=== PATIENT | male | born 1970 | race Caucasian/White ===

== ENCOUNTER 2018-09-15 22:35 | Observation (INO) | payer MEDICARE ==
[2018-09-15 22:54] VITALS: BMI 20.8
--- NOTE | 2018-09-15 23:07 | PDOC ---
Attending Attestation - HPI HPI: 09/15/18 23:36 The patient is a 48 year old male with a significant past medical history of HTN , HLD, DM and recent stents (3 placed last week at [facility]), who presents to the emergency department today complaining of chest pain since this morning, which is nonradiating. Patient reports associated SOB. The patient denies headache and dizziness. Denies fever, chills, nausea, vomit, diarrhea and constipation. Denies dysuria, frequency, urgency and hematuria. Allergies: NKA - Physicial Exam PE: 09/15/18 23:36 Agree with resident exam. <Peace Hunt - Last Filed: 09/15/18 23:36> - Resident Resident Name: Juno Garnett - ED Attending Attestation I have performed the following: I have examined & evaluated the patient, The case was reviewed & discussed with the resident, I agree w/resident's findings & plan - Medical Decision Making 09/16/18 02:56 48-year-old male status post stent cardiac stent at [place] recently now with intermittent retrosternal chest pain EKG showed no acute ST segment changes First troponin within normal limits Due to severity of the pain as CTA of the chest has been ordered and is pending We will review with plans for admission Case discussed with covering physician at [place] who recommends transfer if the CT scan is abnormal or troponins are elevated He also asked to be advised of any acute EKG changes Otherwise patient will remain in house for further observation <Tosha Ramirez - Last Filed: 09/16/18 02:57> Attestations - Attestations 09/15/18 23:36 Documentation prepared by Peace Hunt, acting as medical radiation tech for Tosha Ramirez DO. <Peace Hunt - Last Filed: 09/15/18 23:36>
[2018-09-15] MEDS ORDERED: ASPIRIN 81 MG CHEWABLE TABLETS PO ONE (23:11)
--- NOTE | 2018-09-15 23:29 | PDOC ---
History of Present Illness - General Chief Complaint: Chest Pain Stated Complaint: SURGERY ON WEDNESDAY CHEST PAIN Time Seen by Provider: 09/15/18 23:03 History Source: Patient Exam Limitations: No Limitations - History of Present Illness Initial Comments: 09/15/18 23:20 The patient is a 48M with a PMH of HTN, HLD, DM and recent stents (3 placed last week at [facility]) who presents to the ER with 12 hours of chest pain. The patient states that he developed sharp, nonradiating, retrosternal chest pain which has been constant, mildly improving, without exacerbating or alleviating factors, associated with SOB but no nausea, vomiting, diaphoresis, lightheadedness, palpitations. Past History - Past Medical History Allergies/Adverse Reactions: Allergies Allergy/AdvReac Type Severity Reaction Status Date / Time No Known Allergies Allergy Verified 09/15/18 22:56 Cardiac Disorders: Yes COPD: No Diabetes: Yes Hypercholesterolemia: Yes - Surgical History Cardiac Surgery: Yes - Suicide/Smoking/Psychosocial Hx Smoking History: Unknown if ever smoked Information on smoking cessation initiated: No Hx Alcohol Use: No Drug/Substance Use Hx: No Review of Systems - Review of Systems Able to Perform ROS?: Yes Comments:: 09/15/18 23:29 GENERAL/CONSTITUTIONAL: No fever or chills. No weakness. HEAD, EYES, EARS, NOSE AND THROAT: No change in vision. No ear pain or discharge. No sore throat. CARDIOVASCULAR: Positive for chest pain. No palpitations or lightheadedness. RESPIRATORY: Positive for SOB. No cough, wheezing, or hemoptysis. GASTROINTESTINAL: No nausea, vomiting, diarrhea, constipation, or abdominal pain. GENITOURINARY: No dysuria, frequency, hematuria, or change in urination. MUSCULOSKELETAL: No joint or muscle swelling or pain. No neck or back pain. SKIN: No rash or lesions. NEUROLOGIC: No headache, numbness, tingling, focal weakness, loss of consciousness, or change in strength/sensation. Is the patient limited Maori proficient: No *Physical Exam - Vital Signs Last Vital Signs Temp Pulse Resp BP Pulse Ox 98.3 F 69 20 115/79 98 09/15/18 22:50 09/15/18 22:50 09/15/18 22:50 09/15/18 22:50 09/15/18 22:50 - Physical Exam Comments: 09/15/18 23:31 GENERAL: Well developed, well nourished. Awake and alert. No acute distress. HEENT: Normocephalic, atraumatic. Hearing grossly normal. Moist mucous membranes. PERRLA, EOMI. No conjunctival pallor. NECK: Supple. Full ROM. No JVD. CARDIOVASCULAR: Regular rate and rhythm. No murmurs, rubs, or gallops. PULMONARY: No evidence of respiratory distress. Lungs clear to auscultation bilaterally. No wheezing, rales or rhonchi. ABDOMINAL: Soft. Non-tender. Non-distended. No rebound or guarding. GENITOURINARY: No CVA tenderness bilaterally. MUSCULOSKELETAL: Normal range of motion at all joints. No bony deformities or tenderness. EXTREMITIES: No cyanosis. No clubbing. No edema. No calf tenderness or swelling. SKIN: Warm and dry. Normal capillary refill. No rashes. No jaundice. NEUROLOGICAL: Alert, awake, appropriate. Cranial nerves 2-12 intact. Normal speech. Gait is normal without ataxia. PSYCHIATRIC: Cooperative. Good eye contact. Appropriate mood and affect. Moderate Sedation - Procedure Monitoring Vital Signs: Procedure Monitoring Vital Signs Temperature 98.3 F 09/15/18 22:50 Pulse Rate 69 09/15/18 22:50 Respiratory Rate 20 09/15/18 22:50 Blood Pressure 115/79 09/15/18 22:50 O2 Sat by Pulse Oximetry (%) 98 09/15/18 22:50 Heart Score/ECG Review - History History: Moderately suspicious - Electrocardiogram EKG: Normal - Age Age: 45-65 - Risk Factors Risk Factors Heart Score: Yes Hx Hypercholesterolemia, Yes Hx Hypertension, Yes Hx Diabetes Based on the list above the patient has:: >/=3 risk factors or Hx atherosclerotic disease #1 General ECG Interpretation: Sinus Rhythm, Normal Rate, Normal Intervals, No acute ischemic changes Compared to previous ECG there are: Previous ECG unavail 09/15/18 23:59 NSR vent rate 75 NV 164 QRS 118 QTc 427 No STD or MAGNOLIA No signs of acute ischemia ED Treatment Course - LABORATORY CBC & Chemistry Diagram: 09/15/18 22:15 09/15/18 23:03 - RADIOLOGY Radiology Studies Ordered: Category Date Time Status CHEST X-RAY PORTABLE* [RAD] Stat Radiology 09/15/18 23:11 Ordered Medical Decision Making - Medical Decision Making 09/15/18 23:59 The patient is a 48M with a PMH of HTN, HLD, DM, stents last week on AC who presents to the ER with CP concerning for ACS, thrombosed stent. EKG unremarkable. Pending labs. CXR negative on preliminary read. 09/16/18 01:21 Trop negative. Pt states he feels much more pain. Will treat pain and order CTA to r/o dissection. 09/16/18 01:37 Case d/w Dr. Kenyon, associate of Dr. Carcamo who placed the stents on the patient. Will work up chest pain and send to [facility] if EKG changes are present or if CTA shows anything. 09/16/18 03:15 CTA: negative for thoracic aortic aneurysm or dissection. No PE in the major central pulmonary arteries. Lungs are clear of acute disease. Pt informed. Will microblog for admission. 09/16/18 05:05 Repeat trop 0.3. Will admit pt. *DC/Admit/Observation/Transfer Diagnosis at time of Disposition: Chest pain Qualifiers: Chest pain type: unspecified Qualified Code(s): R07.9 - Chest pain, unspecified - Discharge Dispostion Condition at time of disposition: Guarded Decision to Admit order: Yes - Referrals - Patient Instructions - Post Discharge Activity
[2018-09-15 23:59] LABS: BASO % 0.3 % (0-2.0); EOS % 1.3 % (0-4.5); HEMATOCRIT 41.3 % (35.4-49); HEMOGLOBIN 14.8 GM/dL (11.7-16.9); LYMPH % 22.4 % (8-40); MCH 32.6 pg (25.7-33.7); MCHC 35.9 g/dl (32.0-35.9); MEAN CELL VOLUME 90.9 fl (80-96); MEAN PLT VOLUME 10.2 fl (7.5-11.1); MONO % 11.4 % (3.8-10.2); NEUT % 64.6 % (42.8-82.8); PLATELET COUNT 142 K/MM3 (134-434); RBC 4.55 M/mm3 (4.00-5.60); RDW 12.7 % (11.9-15.9); WHITE BLOOD COUNT 4.5 K/mm3 (4.0-10.0)
[2018-09-16 00:23] LABS: INR 1.11 (0.83-1.09); PROTHROMBIN TIME (PATIENT) 13.1 SEC (9.7-13.0)
[2018-09-16 00:31] LABS: ALBUMIN 3.6 g/dl (3.4-5.0); ALK PHOS 112 U/L (45-117); ANION GAP 5 MMOL/L (8-16); BILIRUBIN,TOTAL 0.4 mg/dL (0.2-1); BLOOD UREA NITROGEN 12 mg/dL (7-18); CALCIUM 8.2 mg/dL (8.5-10.1); CHLORIDE 97 mmol/L (98-107); CO2 31 mmol/L (21-32); CREATININE 0.9 mg/dL (0.55-1.3); GLUCOSE,RANDOM 158 mg/dL (74-106); POTASSIUM 4.4 mmol/L (3.5-5.1); SGOT/AST 38 U/L (15-37); SGPT/ALT 65 U/L (13-61); SODIUM 132 mmol/L (136-145); TOT PROT 8.2 g/dl (6.4-8.2)
[2018-09-16 01:20] LABS: MAGNESIUM 2.1 mg/dL (1.8-2.4)
[2018-09-16] MEDS ORDERED: ONDANSETRON 4 MG/2 ML VIAL IVPUSH ONE (01:20)
[2018-09-16] MEDS ORDERED: morphine CARPU-JECT 4 MG/1 ML DISP.SYRIN IVPUSH ONE (01:20)
[2018-09-16] MEDS ORDERED: ONDANSETRON 4 MG/2 ML VIAL ONE (01:24)
[2018-09-16] MEDS ORDERED: morphine SULFATE 4 MG/ML VIAL ONE (01:24)
--- NOTE | 2018-09-16 05:45 | HP ---
CHIEF COMPLAINT: Chest pain PCP: none HISTORY OF PRESENT ILLNESS: The patient is a 48 yo m w/ PMH HTN, DM, CAD who was stented last week for an unclear reason comes into the ED c/o a 12 hr history of substernal chest pain. The patient states that he was sitting at home when he began to experience a substernal, squeezing pain in the center of his chest. The pain did not radiate and had no exacerbating or alleviating factors. The patient associates this pain with SOB. He states that this pain was different from the pain he experienced when he had his stents placed. The stents were placed at [place] by Dr. Carcamo. Patient endorses compliance with his aspirin and Plavix. He gets his medication from [address] [place] [address]. ER course was notable for: (1) trop neg x2 (2) EKG showing NSR (3) CTA negative for aneurysm/PE Recent Travel: none PAST MEDICAL HISTORY: see HPI PAST SURGICAL HISTORY: stenting 1 week ago Social History: Smoking: former smoker, quit 3 weeks ago Alcohol: drinks 3 times per week, unknown amount Drugs: denies Family History: none Allergies No Known Allergies Allergy (Verified 09/15/18 22:56) HOME MEDICATIONS: REVIEW OF SYSTEMS CONSTITUTIONAL: Absent: fever, chills, diaphoresis, generalized weakness, malaise, loss of appetite, weight change HEENT: Absent: rhinorrhea, nasal congestion, throat pain, throat swelling, difficulty swallowing, mouth swelling, ear pain, eye pain, visual changes CARDIOVASCULAR: Absent: syncope, palpitations, irregular heart rate, lightheadedness, peripheral edema RESPIRATORY: Absent: cough, dyspnea with exertion, orthopnea, wheezing, stridor, hemoptysis GASTROINTESTINAL: Absent: abdominal pain, abdominal distension, nausea, vomiting, diarrhea, constipation, melena, hematochezia GENITOURINARY: Absent: dysuria, frequency, urgency, hesitancy, hematuria, flank pain, genital pain MUSCULOSKELETAL: Absent: myalgia, arthralgia, joint swelling, back pain, neck pain SKIN: Absent: rash, itching, pallor HEMATOLOGIC/IMMUNOLOGIC: Absent: easy bleeding, easy bruising, lymphadenopathy, frequent infections ENDOCRINE: Absent: unexplained weight gain, unexplained weight loss, heat intolerance, cold intolerance NEUROLOGIC: Absent: headache, focal weakness or paresthesias, dizziness, unsteady gait, seizure, mental status changes, bladder or bowel incontinence PSYCHIATRIC: Absent: anxiety, depression, suicidal or homicidal ideation, hallucinations. PHYSICAL EXAMINATION Vital Signs - 24 hr 09/15/18 22:50 Temperature 98.3 F Pulse Rate 69 Respiratory 20 Rate Blood Pressure 115/79 O2 Sat by Pulse 98 Oximetry (%) GENERAL: Awake, alert, and fully oriented, in no acute distress. HEAD: Normal with no signs of trauma. EYES: Prominent conjunctival injection b/l. No tenderness to palpation, no itching. NECK: Normal range of motion, supple without lymphadenopathy, JVD, or masses. LUNGS: Breath sounds equal, clear to auscultation bilaterally. No wheezes, and no crackles. No accessory muscle use. HEART: Regular rate and rhythm, normal S1 and S2 without murmur, rub or gallop. ABDOMEN: Soft, nontender, not distended, normoactive bowel sounds, no guarding, no rebound, no masses. No hepatomegaly or splenomegaly. LOWER EXTREMITIES: 2+ pulses, warm, well-perfused. No calf tenderness. No peripheral edema. NEUROLOGICAL: Cranial nerves II-X intact. Normal speech. SKIN: Warm, dry, normal turgor, no rashes or lesions noted, normal capillary refill. Laboratory Results - last 24 hr 09/15/18 09/15/18 09/15/18 22:15 22:15 22:15 WBC 4.5 RBC 4.55 Hgb 14.8 Hct 41.3 MCV 90.9 MCH 32.6 MCHC 35.9 RDW 12.7 Plt Count 142 MPV 10.2 Absolute Neuts (auto) 2.9 Neutrophils % 64.6 Lymphocytes % 22.4 Monocytes % 11.4 H Eosinophils % 1.3 Basophils % 0.3 Nucleated RBC % 0 PT with INR 13.10 H INR 1.11 H Sodium Potassium Chloride Carbon Dioxide Anion Gap BUN Creatinine Creat Clearance w eGFR Random Glucose Calcium Magnesium Total Bilirubin AST ALT Alkaline Phosphatase Creatine Kinase Troponin I Total Protein Albumin Blood Type O POSITIVE Antibody Screen Negative 09/15/18 09/16/18 09/16/18 23:03 00:33 04:20 WBC RBC Hgb Hct MCV MCH MCHC RDW Plt Count MPV Absolute Neuts (auto) Neutrophils % Lymphocytes % Monocytes % Eosinophils % Basophils % Nucleated RBC % PT with INR INR Sodium 132 L Potassium 4.4 Chloride 97 L Carbon Dioxide 31 Anion Gap 5 L BUN 12 Creatinine 0.9 Creat Clearance w eGFR > 60 Random Glucose 158 H Calcium 8.2 L Magnesium 2.1 Cancelled Total Bilirubin 0.4 AST 38 H ALT 65 H Alkaline Phosphatase 112 Creatine Kinase 62 Troponin I 0.02 0.03 Total Protein 8.2 Albumin 3.6 Blood Type Antibody Screen ASSESSMENT/PLAN: The patient is a 48 yo m w/ PMH HTN, HLD, DM, CAD s/p stenting [place] week who comes into the ED c/o CP and SOB. #Chest pain, SOB r/o ACS/rethrombosis of artery -ED consilted dr. carcamo, who placed the patient's stents, who reccomended ACS workup and transfer if results positive. -trop negative x2 in ED -initial EKG unchanged -Will rpt trop @10am -will rpt EKG @ 10am -patient will benefit from cardiac eval in the AM. -observe on tele -resumed Asa and Plavix as patient likely on these at home. -sublingual nitro prn #b/l conjunctival injection -patient unsure of eitology -patient would benefit from outpatient optho f/u #FEN -no fluids indicated -lytes WNL -diabetic diet #Prophy -SCDs #Dispo -observe on telemetry -patient unsure of medications; they must be verified Visit type - Emergency Visit Emergency Visit: Yes ED Registration Date: 09/16/18 Care time: The patient presented to the Emergency Department on the above date and was hospitalized for further evaluation of their emergent condition. - New Patient This patient is new to me today: Yes Date on this admission: 09/16/18 - Critical Care Critical Care patient: No
[2018-09-16] MEDS ORDERED: NITROGLYCERIN SUBLINGUAL 1/200 0.3 MG BTL SL PRN (06:48)
--- NOTE | 2018-09-16 06:48 | PN ---
Teaching Attending Note Name of Resident: Dayo Wolf ATTENDING PHYSICIAN STATEMENT I saw and evaluated the patient. I reviewed the resident's note and discussed the case with the resident. I agree with the resident's findings and plan as documented. SUBJECTIVE: Seen and examined; please refer to resident note for further historical information. Briefly, this is a 48 y/o male with a PMH significant for recent stenting at [facility] (states multiple placed last week; cath report not available). He presents with chest pain that is typical in nature since this morning. It is L-sided to substernal and radiates throughout the area and is not reproducible. It began when he was at rest. He endorses compliance with his home medication and denies missing any doses of his antiplatelet agents. ER discussed the case with CV at [facility] and they stated that if he was stable in terms of his troponin and CTA that he may stay here at [place]. Old records pending. Also, patient has several weeks of non-painful conjunctival injections without discharge, change in vision acutely, etc. Hasn' t yet seen an eye doctor. 10 sys ROS done and negative aside from HPI PMH and PSH reviewed; FLORIAN with recent PCI, DM, HTN, Smoker up to 1 week ago, HLD , occasional EtOH use but denies abuse Social hx and family hx reviewed Medication list reviewed pending OBJECTIVE: VS, labs, imaging reviewed NAD, AAO, Resting comfortably in bed RRR s1/2 no mgr Lungs CTAB, w/ sym exp NT ND +BS No LE edema, no JVD CN2-12 wnl, no fnd EKG reviewed; repeat is pending Labs reviewed; first 2 troponin wnl CTA final report pending; prelim reviewed ASSESSMENT AND PLAN: Patient with recent PCI presents with chest pain 1) Chest Pain -Concerning given the recent stents but he states he is compliant. Trending EKGs and troponin with first 2 trop wnl. -Consulting cardiology -Admit to telemetry. Check echo. -Ddx is broad; of course considering ACS. Obtaining old records. Consider alternative causes like prinzmetal, sanjay, etc. 2) DM -SSI when inpt 3) HTN -Continue home medications 4) CAD with recent PCI -Reconcile and continue all home medications 5) Former smoker -Since his stenting; encouraged to continue to quit 6) Transaminitis -Check RUQ us, trend LFTs 7) Mild hyponatremia -Unclear etiology; repeat BMP in AM and obtain urine Na, serum and urine osm
[2018-09-16] MEDS ORDERED: ASPIRIN COATED 81 MG TABLET.EC PO SCH (10:00)
[2018-09-16] MEDS ORDERED: ENOXAPARIN NA (PORCINE) 40 MG/0.4 ML DISP.SYRIN SQ SCH (10:00)
[2018-09-16] MEDS ORDERED: CLOPIDOGREL BISULFATE 75 MG TABLET (FP) PO SCH (10:00)
[2018-09-16] MEDS: INSULIN SLIDING SCALE (NOVOLOG) 1 VIAL SQ SCH ×2 (10:16→11:51)
[2018-09-16] MEDS ORDERED: ARTIFICIAL TEARS (POLYVINYL ALCOHOL) OPTH DROPS OU PRN ×2 (10:31→13:50)
[2018-09-16 11:30] LABS: HEMATOCRIT 40.9 % (35.4-49); HEMOGLOBIN 14.5 GM/dL (11.7-16.9); MCH 32.2 pg (25.7-33.7); MCHC 35.5 g/dl (32.0-35.9); MEAN CELL VOLUME 90.7 fl (80-96); MEAN PLT VOLUME 10.6 fl (7.5-11.1); PLATELET COUNT 144 K/MM3 (134-434); RBC 4.51 M/mm3 (4.00-5.60); RDW 12.4 % (11.9-15.9)
[2018-09-16 11:42] LABS: INR 1.13 (0.83-1.09); PROTHROMBIN TIME (PATIENT) 13.4 SEC (9.7-13.0)
[2018-09-16 11:44] LABS: ACTIVATED PTT 29.6 SECONDS (25.2-36.5)
--- NOTE | 2018-09-16 12:00 | CON.CARD ---
Cardiology Consult (text) - Consultation Consultation Note: Chief Complaint: chest pain History of Present Illness: 48 M here with CP. Last month was here with cp and nstemi, had cath then with stent to mid lad. Thompson fine at home for about a week, then yesterday was sitting down and felt left chest heaviness, no radiation, no associated sxs. Came to ER and overnight cp resolved. Different cp then his prior nstemi. smokes 5 cigarettes per day no family h/o CAD/IA or heart problems per pt - Alcohol/Substance Use Hx Alcohol Use: No Home Medications Home Medications Medication Instructions Recorded Aspirin 81 mg PO DAILY 09/16/18 Atorvastatin Calcium 80 mg PO DAILY 09/16/18 Metoprolol Succinate 25 mg PO DAILY 09/16/18 Ticagrelor [Brilinta -] 90 mg PO Q12H 09/16/18 metFORMIN HCL [Metformin HCl] 1,000 mg PO BIDAC 09/16/18 Review of Systems - Review of Systems Constitutional: denies: Chills, Fever Eyes: denies: Eye Pain HENT: denies: Nasal Congestion Neck: denies: Stiffness Cardiovascular: denies: Palpitations Respiratory: denies: Orthopnea, PND Gastrointestinal: denies: Diarrhea, Rectal Bleeding Genitourinary: denies: Burning, Hematuria Musculoskeletal: denies: Muscle Pain Integumentary: denies: Rash Neurological: denies: Numbness, Seizure, Syncope Endocrine: denies: Excessive Sweating Hematology/Lymphatic: denies: Excessive Bleeding Vital Signs: Vital Signs Period Temp Pulse Resp BP Sys/Bates Pulse Ox Last 24 Hr 97.8 F-98.3 F 69-85 18-20 109-116/72-79 96-99 Constitutional: Yes: Well Nourished, No Distress HENT: No: Nasal Congestion Neck: No: Decreased ROM Respiratory: Yes: CTA Bilaterally. No: Accessory Muscle Use, Rales, Rhonchi, Wheezes Gastrointestinal: Yes: Normal Bowel Sounds. No: Distention, Hepatomegaly, Palpable Mass, Tenderness Cardiovascular: Yes: Regular Rate and Rhythm JVD: No Carotid Bruit: No PMI: Non-Displaced Heart Sounds: Yes: S1, S2. No: Gallop, Rub Murmur: No: Systolic Murmur, Diastolic Murmur Musculoskeletal: Yes: Other (No kyphosis) Extremities: No: Cold, Cyanosis Edema: No Peripheral Pulses: 2+ Left Carotid, 2+ Right Carotid, 2+ Left Doralis Pedis, 2+ Right Dorsalis Pedis Integumentary: No: Jaundice Neurological: Yes: Alert, Oriented (x3) Psychiatric: No: Agitated Laboratory Last Values WBC 5.0 K/mm3 (4.0-10.0) 09/16/18 10:40 RBC 4.51 M/mm3 (4.00-5.60) 09/16/18 10:40 Hgb 14.5 GM/dL (11.7-16.9) 09/16/18 10:40 Hct 40.9 % (35.4-49) 09/16/18 10:40 MCV 90.7 fl (80-96) 09/16/18 10:40 MCH 32.2 pg (25.7-33.7) 09/16/18 10:40 MCHC 35.5 g/dl (32.0-35.9) 09/16/18 10:40 RDW 12.4 % (11.9-15.9) 09/16/18 10:40 Plt Count 144 K/MM3 (134-434) 09/16/18 10:40 MPV 10.6 fl (7.5-11.1) 09/16/18 10:40 Absolute Neuts (auto) 2.9 K/mm3 (1.5-8.0) 09/15/18 22:15 Neutrophils % 64.6 % (42.8-82.8) 09/15/18 22:15 Lymphocytes % 22.4 % (8-40) 09/15/18 22:15 Monocytes % 11.4 % (3.8-10.2) H 09/15/18 22:15 Eosinophils % 1.3 % (0-4.5) 09/15/18 22:15 Basophils % 0.3 % (0-2.0) 09/15/18 22:15 Nucleated RBC % 0 % (0-0) 09/15/18 22:15 PT with INR 13.40 SEC (9.7-13.0) H 09/16/18 10:40 INR 1.13 (0.83-1.09) H 09/16/18 10:40 PTT (Actin FS) 29.6 SECONDS (25.2-36.5) 09/16/18 10:40 Sodium 132 mmol/L (136-145) L 09/15/18 23:03 Potassium 4.4 mmol/L (3.5-5.1) 09/15/18 23:03 Chloride 97 mmol/L (98-107) L 09/15/18 23:03 Carbon Dioxide 31 mmol/L (21-32) 09/15/18 23:03 Anion Gap 5 MMOL/L (8-16) L 09/15/18 23:03 BUN 12 mg/dL (7-18) 09/15/18 23:03 Creatinine 0.9 mg/dL (0.55-1.3) 09/15/18 23:03 Creat Clearance w eGFR > 60 (>60) 09/15/18 23:03 POC Glucometer 147 UNITS (80-120) 09/16/18 10:11 Random Glucose 158 mg/dL (74-106) H 09/15/18 23:03 Calcium 8.2 mg/dL (8.5-10.1) L 09/15/18 23:03 Magnesium Cancelled 09/16/18 00:33 Total Bilirubin 0.4 mg/dL (0.2-1) 09/15/18 23:03 AST 38 U/L (15-37) H 09/15/18 23:03 ALT 65 U/L (13-61) H 09/15/18 23:03 Alkaline Phosphatase 112 U/L (45-117) 09/15/18 23:03 Creatine Kinase 62 U/L (26-308) 09/15/18 23:03 Troponin I 0.03 ng/ml (0.00-0.05) 09/16/18 04:20 Total Protein 8.2 g/dl (6.4-8.2) 09/15/18 23:03 Albumin 3.6 g/dl (3.4-5.0) 09/15/18 23:03 Blood Type O POSITIVE 09/15/18 22:15 Antibody Screen Negative 09/15/18 22:15 serial ecgs reviewed: sr, nl intervals, no ischemic changes cta chest: no pe, no dissection, no aortic aneurysm, no chf Assessment/Plan cad, nstemi, pci chest pain: -recent admit for nstemi, had pci to mid [facility] -current cp different then [place] cp per pt -no signs acs here. trops neg. serial ecgs benign. -cta chest unremarkable -cont home cardiac meds, including uninterrupted dual antiplt therapy hld: -cont statin htn: -cont bb cardiac patton stable for dc, has appt with cardiology this wednesday
[2018-09-16 12:19] LABS: ALBUMIN 3.4 g/dl (3.4-5.0); ALK PHOS 97 U/L (45-117); ANION GAP 8 MMOL/L (8-16); BILIRUBIN,TOTAL 0.4 mg/dL (0.2-1); BLOOD UREA NITROGEN 11 mg/dL (7-18); CALCIUM 8.2 mg/dL (8.5-10.1); CHLORIDE 99 mmol/L (98-107); CO2 25 mmol/L (21-32); CREATININE 0.9 mg/dL (0.55-1.3); GLUCOSE,RANDOM 149 mg/dL (74-106); PHOSPHOROUS 4.1 mg/dL (2.5-4.9); POTASSIUM 4.4 mmol/L (3.5-5.1); SGOT/AST 35 U/L (15-37); SGPT/ALT 58 U/L (13-61); SODIUM 132 mmol/L (136-145); TOT PROT 7.7 g/dl (6.4-8.2)
--- NOTE | 2018-09-16 12:22 | PN ---
Teaching Attending Note Name of Resident: Nadir Dove ATTENDING PHYSICIAN STATEMENT I saw and evaluated the patient. I reviewed the resident's note and discussed the case with the resident. I agree with the resident's findings and plan as documented. SUBJECTIVE: No fever or chills, No abd pain, cont to have CP, since last night at 6/10, improved form 810. he describes the pain as retrosternal pressure with no relation to movement, breathing or BM. he some times gets reflux. His pain that prompted the cath was L sided and radiated to L arm. he reports being compliant with all his meds reports injection in his eyes for 3 weeks. No eye pain, no decrease in vision . No pain with eye movements. OBJECTIVE: NAD, AAOx3 . MMM, conjunctival injection with no discharge, pupils are round and normal , reactive to light , EOMI. CV: RRR, No MRG lungs: CTAB Ext : no edema or erythema. No signs of fungal infection No TTP over chest wall . ASSESSMENT AND PLAN: 48 y/o man with h/o HTN, DM, HLP, and CAD s/p recent cath ( 1 week ago in [facility]) , with stenting to [facility]AD ,who presented with retrosternal CP 1- Retrosternal CP: EKG with RBBB, sinus rhythm, Q waves in III and flat TW in III with J point elevation in V2. this was repeated twice and still the same. Trop nl x 2. His chest pain is likely atypical as it lasted for many hours with Nl trop and no EKG changes. ? GERD seen by card, appreciate Recs Cont ASA , statin, BB , and Brilinta . records were requested. 2- Transaminitis: likely due to fatty liver and statin treatment. US with no acute obstructive process Monitor as out pt 3- DM : cont metformin at dc Dc home
--- NOTE | 2018-09-16 13:19 | EKG ---
Test Reason : Blood Pressure : / mmHG Vent. Rate : 073 BPM Atrial Rate : 073 BPM P-R Int : 164 ms QRS Dur : 118 ms QT Int : 388 ms P-R-T Axes : 050 079 039 degrees QTc Int : 427 ms NORMAL SINUS RHYTHM POSSIBLE LEFT ATRIAL ENLARGEMENT INCOMPLETE RIGHT BUNDLE BRANCH BLOCK BORDERLINE ECG NO PREVIOUS ECGS AVAILABLE Confirmed by KRISTINE BISHOP MD ([id number]) on 09/16/2018 1:19:08 PM Referred By: Confirmed By:KRISTINE BISHOP MD
--- NOTE | 2018-09-16 13:22 | EKG ---
Test Reason : Blood Pressure : / mmHG Vent. Rate : 082 BPM Atrial Rate : 082 BPM P-R Int : 164 ms QRS Dur : 102 ms QT Int : 354 ms P-R-T Axes : 041 087 037 degrees QTc Int : 413 ms NORMAL SINUS RHYTHM CANNOT RULE OUT INFERIOR INFARCT (CITED ON OR BEFORE 16-SEP-2018) ABNORMAL ECG WHEN COMPARED WITH ECG OF 16-SEP-2018 01:43, NO SIGNIFICANT CHANGE WAS FOUND Confirmed by KRISTINE BISHOP MD ([id number]) on 09/16/2018 1:22:10 PM Referred By: SELMA MORALES Confirmed By:KRISTINE BISHOP MD
--- NOTE | 2018-09-16 13:22 | EKG ---
Test Reason : Blood Pressure : / mmHG Vent. Rate : 080 BPM Atrial Rate : 080 BPM P-R Int : 166 ms QRS Dur : 114 ms QT Int : 372 ms P-R-T Axes : 037 061 030 degrees QTc Int : 429 ms NORMAL SINUS RHYTHM CANNOT RULE OUT INFERIOR INFARCT (CITED ON OR BEFORE 16-SEP-2018) ABNORMAL ECG WHEN COMPARED WITH ECG OF 16-SEP-2018 01:42, NO SIGNIFICANT CHANGE WAS FOUND Confirmed by KRISTINE BISHOP MD ([id number]) on 09/16/2018 1:22:05 PM Referred By: Confirmed By:KRISTINE BISHOP MD
[2018-09-16 13:44] VITALS: TEMP 98
--- NOTE | 2018-09-16 14:25 | DS ---
Physical Exam: SUBJECTIVE: Patient seen and examined at bedside. No acute events overnight. OBJECTIVE: Vital Signs Period Temp Pulse Resp BP Sys/Bates Pulse Ox Last 24 Hr 97.8 F-98.3 F 68-85 18-20 108-116/71-79 96-100 PHYSICAL EXAM GENERAL: Awake, alert, and fully oriented, in no acute distress. HEAD: Normal with no signs of trauma. EYES: Prominent conjunctival injection b/l. No tenderness to palpation, no itching. NECK: Normal range of motion, supple without lymphadenopathy, JVD, or masses. LUNGS: Breath sounds equal, clear to auscultation bilaterally. No wheezes, and no crackles. No accessory muscle use. HEART: Regular rate and rhythm, normal S1 and S2 without murmur, rub or gallop. ABDOMEN: Soft, nontender, not distended, normoactive bowel sounds, no guarding, no rebound, no masses. No hepatomegaly or splenomegaly. LOWER EXTREMITIES: 2+ pulses, warm, well-perfused. No calf tenderness. No peripheral edema. NEUROLOGICAL: Cranial nerves II-X intact. Normal speech. SKIN: Warm, dry, normal turgor, no rashes or lesions noted, normal capillary refill. LABS Laboratory Results - last 24 hr 09/15/18 09/15/18 09/15/18 22:15 22:15 22:15 WBC 4.5 RBC 4.55 Hgb 14.8 Hct 41.3 MCV 90.9 MCH 32.6 MCHC 35.9 RDW 12.7 Plt Count 142 MPV 10.2 Absolute Neuts (auto) 2.9 Neutrophils % 64.6 Lymphocytes % 22.4 Monocytes % 11.4 H Eosinophils % 1.3 Basophils % 0.3 Nucleated RBC % 0 PT with INR 13.10 H INR 1.11 H PTT (Actin FS) Sodium Potassium Chloride Carbon Dioxide Anion Gap BUN Creatinine Creat Clearance w eGFR POC Glucometer Random Glucose Calcium Phosphorus Magnesium Total Bilirubin AST ALT Alkaline Phosphatase Creatine Kinase Troponin I Total Protein Albumin Blood Type O POSITIVE Antibody Screen Negative 09/15/18 09/16/18 09/16/18 23:03 00:33 04:20 WBC RBC Hgb Hct MCV MCH MCHC RDW Plt Count MPV Absolute Neuts (auto) Neutrophils % Lymphocytes % Monocytes % Eosinophils % Basophils % Nucleated RBC % PT with INR INR PTT (Actin FS) Sodium 132 L Potassium 4.4 Chloride 97 L Carbon Dioxide 31 Anion Gap 5 L BUN 12 Creatinine 0.9 Creat Clearance w eGFR > 60 POC Glucometer Random Glucose 158 H Calcium 8.2 L Phosphorus Magnesium 2.1 Cancelled Total Bilirubin 0.4 AST 38 H ALT 65 H Alkaline Phosphatase 112 Creatine Kinase 62 Troponin I 0.02 0.03 Total Protein 8.2 Albumin 3.6 Blood Type Antibody Screen 09/16/18 09/16/18 09/16/18 10:11 10:40 10:40 WBC 5.0 RBC 4.51 Hgb 14.5 Hct 40.9 MCV 90.7 MCH 32.2 MCHC 35.5 RDW 12.4 Plt Count 144 MPV 10.6 Absolute Neuts (auto) Neutrophils % Lymphocytes % Monocytes % Eosinophils % Basophils % Nucleated RBC % PT with INR INR PTT (Actin FS) Sodium Potassium Chloride Carbon Dioxide Anion Gap BUN Creatinine Creat Clearance w eGFR POC Glucometer 147 Random Glucose Calcium Phosphorus Magnesium Total Bilirubin AST ALT Alkaline Phosphatase Creatine Kinase Troponin I Total Protein Albumin Blood Type O POSITIVE Antibody Screen 09/16/18 09/16/18 10:40 10:40 WBC RBC Hgb Hct MCV MCH MCHC RDW Plt Count MPV Absolute Neuts (auto) Neutrophils % Lymphocytes % Monocytes % Eosinophils % Basophils % Nucleated RBC % PT with INR 13.40 H INR 1.13 H PTT (Actin FS) 29.6 Sodium 132 L Potassium 4.4 Chloride 99 Carbon Dioxide 25 Anion Gap 8 BUN 11 Creatinine 0.9 Creat Clearance w eGFR > 60 POC Glucometer Random Glucose 149 H Calcium 8.2 L Phosphorus 4.1 Magnesium 2.0 Total Bilirubin 0.4 AST 35 ALT 58 Alkaline Phosphatase 97 Creatine Kinase Troponin I Total Protein 7.7 Albumin 3.4 Blood Type Antibody Screen HOSPITAL COURSE: Date of Admission:09/16/18 48 yo m w/ PMH HTN, HLD, DM, CAD s/p stenting lask week who presented with c/o CP and SOB. Initial labs showed trops negx2 in the ED. Pt was given ASA and Plavix as well as SL nitro. He was admitted to the [facility] for further monitoring. EKG showed RBBB, sinus rhythm, Q waves in III and flat TWI in III w/ J point elevation in V2. Repeat EKG was unchanged. Upon cardiac eval, pt was not found to have an acute cardiac condition and as a result was cleared from a cardiac standpoint. Additionally, he was found to have b/l conjunctival injection in which he was prescribed Artifical tears as well as advised to follow up with ophtho as outpatient. During his hospital course, his symptoms improved. He was discharged home and advised to follow up with his PCP and leasing assistant. Date of Discharge: 09/16/18 Minutes to complete discharge: 40 Discharge Summary Reason For Visit: CHEST PAIN Current Active Problems Chest pain (Acute) Condition: Improved - Instructions Diet, Activity, Other Instructions: You were seen in the hospital for complaints of chest pain. In the hospital, your EKGs and blood work did not show signs of acute cardiac injury. MEDICATION INSTRUCTIONS Please use artificial tears 2 drops each eye Please continue taking your home medications as before. REFERRALS Please follow up with your primary care physician within 1 week. You had enlarged lymph nodes (mediastinal lymphadenopathy) on CT of chest. Have your primary care physician evaluate you further for repeat imaging and possible need for biopsy. You also had elevated liver enzymes, please bring this to your primary care physicin. Make an appointment with [facility] at [address] [place] [address] ([phone]) Please follow up with your leasing assistant on Wednesday. Please see the postpartum nurse within 2 weeks to follow with your eye concerns. If you experience worsening chest pain or shortness of breath, please return to the emergency room immediately. Referrals: Eri Mcdermott MD [Staff Physician] - Jack Carcamo MD [Staff Physician] - 1 Week Disposition: HOME - Home Medications Comprehensive Discharge Medication List: Ambulatory Orders Aspirin 81 mg PO DAILY 09/16/18 Atorvastatin Calcium 80 mg PO DAILY 09/16/18 Metoprolol Succinate 25 mg PO DAILY 09/16/18 Polyvinyl Alcohol [Artificial Tears] 1 drop OU BID PRN #1 bottle 09/16/18 Ticagrelor [Brilinta -] 90 mg PO Q12H 09/16/18 metFORMIN HCL [Metformin HCl] 1,000 mg PO BIDAC 09/16/18 This patient is new to me today: Yes Date on this admission: 09/19/18 Emergency Visit: Yes ED Registration Date: 09/16/18 Care time: The patient presented to the Emergency Department on the above date and was hospitalized for further evaluation of their emergent condition. Critical Care patient: No - Discharge Referral Referred to [facility] No
[2018-09-16 16:05] VITALS: BP 110/61; PULSE 77
--- NOTE | 2018-09-18 09:28 | EKG ---
Test Reason : Blood Pressure : / mmHG Vent. Rate : 097 BPM Atrial Rate : 078 BPM P-R Int : 170 ms QRS Dur : 102 ms QT Int : 374 ms P-R-T Axes : 047 091 015 degrees QTc Int : 474 ms POOR DATA QUALITY, INTERPRETATION MAY BE ADVERSELY AFFECTED SINUS RHYTHM WITH PREMATURE SUPRAVENTRICULAR COMPLEXES AND WITH OCCASIONAL PREMATURE VENTRICULAR COMPLEXES RIGHTWARD AXIS BORDERLINE ECG Confirmed by Orlin Saleem MD ([id number]) on 09/18/2018 9:28:11 AM Referred By: Confirmed By:Orlin Saleem MD
== END 2018-09-16 16:49 | disposition home or self-care (01) ==
LOC: JER 22:35 → UNDOADMOB 09-16 05:06 → INTOOBSV 09-16 05:06 → JERBED 09-16 05:06
PROVIDERS: ADMIT Internal Medicine; ATTEND Internal Medicine
PROC: 3E033NZ Introduction of Analgesics, Hypnotics, Sedatives into Peripheral Vein, Percutaneous Approach (ICD-10-PCS; principal; 2018-09-16)
PROC: 3E033GC Introduction of Other Therapeutic Substance into Peripheral Vein, Percutaneous Approach (ICD-10-PCS; 2018-09-16)
PROC: 3E013GC Introduction of Other Therapeutic Substance into Subcutaneous Tissue, Percutaneous Approach (ICD-10-PCS; 2018-09-16)
DX: R07.9 Chest pain, unspecified (principal); H11.433 Conjunctival hyperemia, bilateral; I10 Essential (primary) hypertension; I25.10 Atherosclerotic heart disease of native coronary artery without angina pectoris; I25.2 Old myocardial infarction; I45.10 Unspecified right bundle-branch block; E78.5 Hyperlipidemia, unspecified; E11.9 Type 2 diabetes mellitus without complications; E87.1 Hypo-osmolality and hyponatremia; R74.0 Nonspecific elevation of levels of transaminase and lactic acid dehydrogenase [LDH]; R59.1 Generalized enlarged lymph nodes; Z95.5 Presence of coronary angioplasty implant and graft; Z87.891 Personal history of nicotine dependence
CPT/HCPCS: 36415; 71045-TC-FY; 71275-TC; 76705-TC; 80053; 82550; 82962; 83735; 84100; 84484; 85025; 85027; 85610; 85730; 86850; 86900; 86901; 93005; 93010; 96372; 96374; 96375; 99285-25; G0378

== ENCOUNTER 2018-10-08 11:09 | Emergency (ER) | payer OTHER ==
--- NOTE | 2018-10-08 11:13 | PDOC ---
Attending Attestation - Resident Resident Name: Elaine Aguirre - ED Attending Attestation I have performed the following: I have examined & evaluated the patient, The case was reviewed & discussed with the resident, I agree w/resident's findings & plan, Exceptions are as noted - HPI HPI: 10/08/18 11:31 48yo male presents ambulatory for eval of b/l wrist and b/l knee pain. Pain started on Wednesday. States he feels stiff in the AM and then after a warm bath and after moving the pain resolves. Pt states taking tylenol for the pain. Pt denies f/c. No rash. No swelling. No redness. No falls/injury. No cp/sob/cough. No pereira. No neck pain. No back pain. No paresthesias. No weakness. No abd pain. No n/v/d. No sore throat. No rhinorrhea. NO urinary complaints. Pt with recent cardiac cath through R radial artery with stent placement. Denies cp. - Physicial Exam PE: 10/08/18 11:34 Gen: aaox3, nad heent: EOMI, MMM neck: supple, no vertebral ttp heart:+s1s2 reg lungs: cta b/l abd: soft, nt/nd +bs ext: no swelling to wrists or knees, no warmth, no redness, no palpable bruit/ thrill to R radial artery, radial and pedal pulses intact, FROM of all joints, no ttp over joints, pain with active rom of wrists and knees, no hip ttp, no back ttp, no rash, sensation intact, no nail changes, no lesions to hands - Medical Decision Making 10/08/18 11:13 I, Dr. Samantha Lizarraga, DO, attest that this document has been prepared under my direction and personally reviewed by me in its entirety. I further attest, that it accurately reflects all work, treatment, procedures and medical decision -making performed by me. 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 Bueno for wednesday ekg is improved pt stable for dc to home 10/08/18 12:20 pt has been ambulatory in the ED Heart Score/ECG Review - ECG Intrepretation Comment:: 10/08/18 12:01 sinus at 76, nl axis, nl interval, no acute st/t wave findings- improved from prior ekg
[2018-10-08 11:17] VITALS: BP 118/70; PULSE 70; TEMP 98.5; BMI 27.0
--- NOTE | 2018-10-08 11:20 | PDOC ---
History of Present Illness - General Chief Complaint: Pain Stated Complaint: JOINT PAIN Time Seen by Provider: 10/08/18 11:10 - History of Present Illness Initial Comments: 48 year old male with PMH of HTN, HLD, DM, recent stents (x3 placed one month ago), and recent admission for chest pain (CTA, trops, and EKG negative two weeks ago) presenting with bilateral wrist pain and bilateral knee pain for the past few week with worsening pain over the last week. States that he has had worsening pain since his HI 3 weeks ago. 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 He also states that he has swelling of the joints. Denies any fevers, rashes, recent insect bites, trauma to the joints, continued chest pain, headache, or other symptoms. 10/08/18 11:25 Past History - Past Medical History Allergies/Adverse Reactions: Allergies Allergy/AdvReac Type Severity Reaction Status Date / Time No Known Allergies Allergy Verified 10/08/18 11:10 Home Medications: Ambulatory Orders Aspirin 81 mg PO DAILY 09/16/18 Atorvastatin Calcium 80 mg PO DAILY 09/16/18 Metoprolol Succinate 25 mg PO DAILY 09/16/18 Polyvinyl Alcohol [Artificial Tears] 1 drop OU BID PRN #1 bottle 09/16/18 Ticagrelor [Brilinta -] 90 mg PO Q12H 09/16/18 metFORMIN HCL [Metformin HCl] 1,000 mg PO BIDAC 09/16/18 Cardiac Disorders: Yes COPD: No Diabetes: Yes HTN: Yes Hypercholesterolemia: Yes - Surgical History Cardiac Surgery: Yes (STENT) - Suicide/Smoking/Psychosocial Hx Smoking History: Unknown if ever smoked Have you smoked in the past 12 months: No Information on smoking cessation initiated: No Hx Alcohol Use: No Drug/Substance Use Hx: No Review of Systems - Review of Systems Constitutional: No: Chills, Diaphoresis, Fever HEENTM: No: Blurred Vision, Tearing Respiratory: No: Cough, Orthopnea, Shortness of Breath Cardiac (ROS): No: Chest Pain, Edema ABD/GI: No: Diarrhea, Nausea, Vomiting : No: Burning, Dysuria, Discharge Musculoskeletal: Yes: Joint Pain, Joint Swelling. No: Back Pain, Muscle Weakness, Neck Pain Integumentary: No: Bruising, Erythema, Flushing, Lesions, Rash Neurological: No: Numbness, Paresthesia, Weakness Psychiatric: No: Depression Hematologic/Lymphatic: No: Anemia, Blood Clots, Easy Bleeding *Physical Exam - Vital Signs Last Vital Signs Temp Pulse Resp BP Pulse Ox 98.5 F 70 20 118/70 99 10/08/18 11:10 10/08/18 11:10 10/08/18 11:10 10/08/18 11:10 10/08/18 11:10 - Physical Exam General Appearance: Yes: Nourished, Appropriately Dressed. No: Apparent Distress HEENT: positive: EOMI, DERIK, Normal ENT Inspection, Normal Voice Neck: positive: Trachea midline, Normal Thyroid, Supple. negative: Tender, Rigid Respiratory/Chest: positive: Lungs Clear, Normal Breath Sounds. negative: Chest Tender, Respiratory Distress Cardiovascular: positive: Regular Rhythm, Regular Rate Gastrointestinal/Abdominal: positive: Normal Bowel Sounds, Flat, Soft. negative : Tender Lymphatic: negative: Adenopathy, Tenderness Musculoskeletal: positive: Normal Inspection. negative: Decreased Range of Motion Extremity: positive: Normal Capillary Refill, Normal Inspection, Normal Range of Motion. negative: Tender Integumentary: positive: Normal Color, Dry, Warm Neurologic: positive: Fully Oriented, Alert, Normal Mood/Affect, Normal Response , Motor Strength 5/5 Moderate Sedation - Procedure Monitoring Vital Signs: Procedure Monitoring Vital Signs Temperature 98.5 F 10/08/18 11:10 Pulse Rate 70 10/08/18 11:10 Respiratory Rate 20 10/08/18 11:10 Blood Pressure 118/70 10/08/18 11:10 O2 Sat by Pulse Oximetry (%) 99 10/08/18 11:10 Medical Decision Making - Medical Decision Making 48 year old male with bilaterla wrist and knee pain in the setting of severely decreased activity since an HI. Patient taking Tylenol without relief. Toradol 30 IM significantly improved his pain in our ED. EKG demonstrated rate 76, FL 162, QRS 110, QTc 436, normal axis, with S waves in V1-V3 without MAGNOLIA, TWIs which seems improved from previous EKG 2 weeks prior. XRs demonstrating mild arthritis but no obvious erosions or fractures. 10/08/18 11:40 *DC/Admit/Observation/Transfer Diagnosis at time of Disposition: Joint pain Qualifiers: Joint pain location: wrist Laterality: bilateral Qualified Code(s): M25.531 - Pain in right wrist; M25.532 - Pain in left wrist Knee pain, bilateral Qualifiers: Chronicity: unspecified Qualified Code(s): M25.561 - Pain in right knee; M25.562 - Pain in left knee - Discharge Dispostion Disposition: HOME Condition at time of disposition: Improved Decision to Admit order: No - Referrals - Patient Instructions Printed Discharge Instructions: DI for Osteoarthritis Additional Instructions: Parece que tienes ainsley artritis leve en tus articulaciones, lo cual es comn para alguien de tu edad. Por favor use tylenol y compresas calientes para kan dolor. Por favor, wendy un seguimiento con kan mdico de atencin primaria en 6 bundy en kan nela. Regrese a la nimesh de emergencias si tiene sntomas nuevos o que empeoran. Print Language: SUDANESE - Post Discharge Activity
[2018-10-08] MEDS ORDERED: KETOROLAC TROMETHAMINE 30 MG/1 ML VIAL IM ONE (11:24)
[2018-10-08] MEDS ORDERED: KETOROLAC TROMETHAMINE 30 MG/1 ML VIAL ONE (11:38)
--- NOTE | 2018-10-10 11:07 | EKG ---
Test Reason : Blood Pressure : / mmHG Vent. Rate : 076 BPM Atrial Rate : 076 BPM P-R Int : 162 ms QRS Dur : 110 ms QT Int : 388 ms P-R-T Axes : 039 074 052 degrees QTc Int : 436 ms NORMAL SINUS RHYTHM NORMAL ECG WHEN COMPARED WITH ECG OF 16-SEP-2018 09:51, NO SIGNIFICANT CHANGE WAS FOUND Confirmed by MAXWELL ROMERO MD ([id number]) on 10/10/2018 11:07:11 AM Referred By: PETEY LOPEZ Confirmed By:MAXWELL ROMERO MD
== END 2018-10-08 12:47 | disposition home or self-care (01) ==
LOC: FER 11:09
PROC: 3E0233Z Introduction of Anti-inflammatory into Muscle, Percutaneous Approach (ICD-10-PCS; principal; 2018-10-08)
DX: M25.531 Pain in right wrist (principal); M25.562 Pain in left knee; I25.2 Old myocardial infarction; I10 Essential (primary) hypertension; E11.9 Type 2 diabetes mellitus without complications; E78.00 Pure hypercholesterolemia, unspecified
CPT/HCPCS: 73110-TC-LT-FY; 73110-TC-RT-FY; 73130-TC-LT-FY; 73130-TC-RT-FY; 73560-TC-LT-FY; 73560-TC-RT-FY; 93005; 99282-25

== ENCOUNTER 2018-10-21 15:32 | Inpatient (IN) | payer OTHER ==
--- NOTE | 2018-10-21 15:43 | PDOC ---
Rapid Medical Evaluation Time Seen by Provider: 10/21/18 15:41 Medical Evaluation: Allergies Allergy/AdvReac Type Severity Reaction Status Date / Time No Known Allergies Allergy Verified 10/21/18 15:41 03 15:41 I performed a brief in-person evaluation of this patient. Chief complaint: Chest and back pain since Wednesday, constant. Hx HTN, DM, HLD , CAD s/p stents. Pertinent physical exam findings: Mild tachycardia. Clear lungs. I have ordered the following: EKG, CXR, cardiac labs Patient to proceed to the ED for further evaluation. Discharge Disposition - Diagnosis Chest pain - Referrals - Patient Instructions - Post Discharge Activity
[2018-10-21] MEDS ORDERED: ASPIRIN 325 MG TABLET PO ONE (15:44)
[2018-10-21] MEDS ORDERED: ASPIRIN 325 MG TABLET ONE (15:57)
[2018-10-21 16:12] LABS: BASO % 0.2 % (0-2.0); EOS % 0.4 % (0-4.5); HEMATOCRIT 41.5 % (35.4-49); HEMOGLOBIN 14.4 GM/dL (11.7-16.9); LYMPH % 16.9 % (8-40); MCH 31.2 pg (25.7-33.7); MCHC 34.7 g/dl (32.0-35.9); MEAN CELL VOLUME 89.7 fl (80-96); MONO % 7.7 % (3.8-10.2); NEUT % 74.8 % (42.8-82.8); PLATELET COUNT 312 K/MM3 (134-434); RBC 4.62 M/mm3 (4.00-5.60); RDW 12.3 % (11.9-15.9); WHITE BLOOD COUNT 6.3 K/mm3 (4.0-10.0)
--- NOTE | 2018-10-21 16:27 | PDOC ---
Attending Attestation - HPI HPI: 10/21/18 17:09 The patient is a 48 year old male with a past medical history of NJ (one month ago) and recently diagnosed PE here today for evaluation of chest pain. The patient reports that his chest pain began recently radiates to his bilateral shoulders and back and is worse with inspiration. Patient denies headache, lightheadedness. Denies fever, chills. Denies chest pain, shortness of breath. Denies nausea, vomiting, diarrhea, abdominal pain. Allergies: NKA PCP: David Bueno - Medical Decision Making 10/21/18 17:09 Documentation prepared by CRISTINA Rosenthal, acting as medical clerical assistant for Kirsty Renteria MD. <Itz Melo - Last Filed: 10/21/18 17:09> - Medical Decision Making EXAM#: TYPE/EXAM: RESULT: [id number] CT/CHEST CTA Chest CT angiography Clinical information given: pulmonary embolism on 10/17, increasing pain and dyspnea, tachycardic. Impression: No definite CT evidence of pulmonary embolism. In this regard there has been no definite interval change in comparison to a prior CT study of 2018. Correlate with the results of interval studies apparently performed at a different facility. Interval development of mild lingular and minimal right lower lobe atelectasis is noted. Development of a trace left pleural effusion is seen. The remainder the exam demonstrates no definite interval change. Prominent atherosclerotic coronary calcification and/or stent. Mildly prominent mediastinal lymph nodes are again noted. Correlation with 3 month follow-up CT to evaluate stability/resolution. Possible splenomegaly. Correlate with sonography. Reported By: Jack Sifuentes MD 10/21/18 18:51 EXAM#: TYPE/EXAM: RESULT: [id number] RAD/CHEST X-RAY PORTABLE* AP portable chest : Chest pain Impression: No acute chest pathology. Reported By: Nadir Piña MD 10/21/18 19:03 10/21/18 19:52 <Ama Londono - Last Filed: 10/21/18 19:51> - Resident Resident Name: Frank Irwin - ED Attending Attestation I have performed the following: I have examined & evaluated the patient, The case was reviewed & discussed with the resident, I agree w/resident's findings & plan, Exceptions are as noted - HPI HPI: - Physicial Exam PE: 10/21/18 18:13 GENERAL: Awake, alert, and fully oriented, diaphoretic LUNGS: No distress, speaks full sentences, clear to auscultation bilaterally HEART: Regular rate and rhythm, normal S1 and S2, no murmurs, rubs or gallops ABDOMEN: Soft, nontender EXTREMITIES: Normal inspection, Normal range of motion, no edema. NEUROLOGICAL: Cranial nerves II through XII grossly intact. Normal speech, normal gait, no focal sensorimotor deficits SKIN: Warm, Dry, normal turgor, no rashes or lesions noted. - Critical Care Time Total Critical Care Time: 120 Critical Care Statement: The care of this patient involved high complexity decision making to prevent further life threatening deterioration of the patient 's condition and/or to evaluate & treat vital organ system(s) failure or risk of failure. - Medical Decision Making 10/21/18 18:10 Mr Lynne is a 48 yo M h/o NJ and stenting, recent h/o PE (on Xarelto) who presents to the ER with a complaint of pleuritic chest pain associated with shortness of breath (due to the inability to take a deep breath) for 2 days. He reports that his pain has been constant for the past 2 days, so much so that he has been unable to sleep due to chest discomfort (he has taken tylenol for pain with basically no relief). He is compliant with Xeralto (last taken this morning at 7:30). No leg pain or swelling. Denies fevers, chills, nausea, vomiting. Pain radiates to right and left shoulder. Pt appears dyspneic (splinting due to pain) Regular rate and rhythm No crackles at base No abd tenderness to palpation No lower extremity edema Pt presentation consistent with ACS, PE, costochondritis, Pericarditis, unlikely pna Initial concern for PE given pt description of pain 10/21/18 18:14 Labs sent Will CTA chest to r/o massive PE/need for IR (though pt reports compliance w/ AC) Laboratory Tests 10/21/18 10/21/18 10/21/18 15:45 15:45 15:55 WBC 6.3 Hgb 14.4 Hct 41.5 Plt Count 312 D INR 1.03 Sodium 125 L Potassium 4.4 Chloride 92 L Carbon Dioxide 25 BUN 11 Creatinine 0.8 Random Glucose 385 H* Creatine Kinase 43 Troponin I 0.36 H CTA - 10/21/18 21:32 Labs sent CTA - no PE Case reviewed with Cards by Dr Irwin, plan for admission, serial trops Pt given Nitro for chest pain Pt admitted to hospitalist Pt states that he still has ongoing chest pain Call placed to Dr Stallings States pt should be started on Nitro and Morphine 10/21/18 22:45 I have clarified with hospitalist need for heparin given NOAC use. Recommends holding heparin for now 10/22/18 01:00 Call placed to [facility] Case reviewed with Dr Carcamo by Dr. Irwin He accepts this patient for transfer to CCU when bed available 10/22/18 02:37 Dr Stallings has called us in the ER Repeat EKG sent to him He is aware of repeat trop Recommends Lopressor and increasing Nitro drip (maximal medical therapy) Will send EKG to Cath attending to determine need for emergent Cath Pt upgraded to ICU 10/22/18 10:38 <Kirsty Renteria - Last Filed: 10/23/18 00:15>
[2018-10-21 16:38] LABS: INR 1.03 (0.83-1.09); PROTHROMBIN TIME (PATIENT) 12.1 SEC (9.7-13.0)
[2018-10-21 17:16] LABS: ALBUMIN 3.5 g/dl (3.4-5.0); ALK PHOS 132 U/L (45-117); ANION GAP 8 MMOL/L (8-16); BILIRUBIN,TOTAL 0.6 mg/dL (0.2-1); BLOOD UREA NITROGEN 11 mg/dL (7-18); CALCIUM 8.9 mg/dL (8.5-10.1); CHLORIDE 92 mmol/L (98-107); CO2 25 mmol/L (21-32); CREATININE 0.8 mg/dL (0.55-1.3); POTASSIUM 4.4 mmol/L (3.5-5.1); SGOT/AST 24 U/L (15-37); SGPT/ALT 96 U/L (13-61); SODIUM 125 mmol/L (136-145); TOT PROT 8.9 g/dl (6.4-8.2)
[2018-10-21 17:17] LABS: GLUCOSE,RANDOM 385 mg/dL (74-106)
--- NOTE | 2018-10-21 17:21 | PDOC ---
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 Patient states that he was feeling better after his initial diagnosis but things have worsened. Patient endorses compliance with his Xarelto, stating he never missed a dose. However, he did not know what the medication was and does not have the pill bottles available. No leg pain or swelling. Patient states that he doesn't know why he had a blood clot. Denies fevers, chills, nausea, vomiting. Denies arm/leg/facial weakness. Pain radiates to right and left shoulder. Past History - Past Medical History Allergies/Adverse Reactions: Allergies Allergy/AdvReac Type Severity Reaction Status Date / Time No Known Allergies Allergy Verified 10/21/18 15:41 Home Medications: Ambulatory Orders Atorvastatin Ca [Lipitor] 80 mg PO HS 10/21/18 Clopidogrel Bisulfate [Plavix] 75 mg PO DAILY 10/21/18 Lisinopril [Prinivil] 5 mg PO DAILY 10/21/18 Metformin HCl [Glucophage] 1,000 mg PO BID 10/21/18 Metoprolol Succinate [Toprol Xl] 25 mg PO DAILY 10/21/18 Rivaroxaban [Xarelto -] 20 mg PO DAILY 10/21/18 Rivaroxaban [Xarelto] 15 mg PO BID 10/21/18 predniSONE [Deltasone -] 5 mg PO DAILY 10/21/18 Cardiac Disorders: Yes COPD: No Diabetes: Yes HTN: Yes Hypercholesterolemia: Yes - Surgical History Cardiac Surgery: Yes (STENT) - Suicide/Smoking/Psychosocial Hx Smoking History: Former smoker Have you smoked in the past 12 months: No Information on smoking cessation initiated: No Hx Alcohol Use: Yes (DAILY) Drug/Substance Use Hx: No Review of Systems - Review of Systems Able to Perform ROS?: Yes Comments:: 10/21/18 17:22 GENERAL/CONSTITUTIONAL: No fever or chills. No weakness. HEAD, EYES, EARS, NOSE AND THROAT: No change in vision. No sore throat. CARDIOVASCULAR: +chest pain +shortness of breath RESPIRATORY: No cough, wheezing, or hemoptysis. GASTROINTESTINAL: No nausea, vomiting, diarrhea or constipation. GENITOURINARY: No dysuria, frequency, or change in urination. MUSCULOSKELETAL: No joint or muscle swelling or pain. No neck or back pain. SKIN: No rash NEUROLOGIC: No headache, vertigo, loss of consciousness, or change in strength/ sensation. ENDOCRINE: No increased thirst. No abnormal weight change HEMATOLOGIC/LYMPHATIC: No anemia, easy bleeding, +history of blood clots. ALLERGIC/IMMUNOLOGIC: No hives or skin allergy. *Physical Exam - Vital Signs Last Vital Signs Temp Pulse Resp BP Pulse Ox 98.2 F 122 H 16 146/104 H 100 10/21/18 15:41 10/21/18 15:41 10/21/18 15:41 10/21/18 15:41 10/21/18 15:41 - Physical Exam Comments: 10/21/18 17:22 GENERAL: Awake, alert, and fully oriented, diaphoretic HEAD: No signs of trauma, normocephalic, atraumatic EYES: PERRLA, EOMI, sclera anicteric, conjunctiva clear ENT: Auricles normal inspection, hearing grossly normal, nares patent, oropharynx clear without exudates. Moist mucosa NECK: Normal ROM, supple, no lymphadenopathy, JVD, or masses LUNGS: No distress, speaks full sentences, clear to auscultation bilaterally HEART: Regular rate and rhythm, normal S1 and S2, no murmurs, rubs or gallops, peripheral pulses normal and equal bilaterally. ABDOMEN: Soft, nontender, normoactive bowel sounds. No guarding, no rebound. No masses EXTREMITIES: Normal inspection, Normal range of motion, no edema. No clubbing or cyanosis. NEUROLOGICAL: Cranial nerves II through XII grossly intact. Normal speech, normal gait, no focal sensorimotor deficits SKIN: Warm, Dry, normal turgor, no rashes or lesions noted. Moderate Sedation - Procedure Monitoring Vital Signs: Procedure Monitoring Vital Signs Temperature 98.2 F 10/21/18 15:41 Pulse Rate 122 H 10/21/18 15:41 Respiratory Rate 16 10/21/18 15:41 Blood Pressure 146/104 H 10/21/18 15:41 O2 Sat by Pulse Oximetry (%) 100 10/21/18 15:41 ED Treatment Course - LABORATORY CBC & Chemistry Diagram: 10/21/18 15:55 10/21/18 15:45 - ADDITIONAL ORDERS Additional order review: Laboratory Results 10/21/18 15:45 PT with INR 12.10 INR 1.03 10/21/18 15:55 RBC 4.62 MCV 89.7 MCHC 34.7 RDW 12.3 MPV 9.0 D Neutrophils % 74.8 Lymphocytes % 16.9 D Monocytes % 7.7 Eosinophils % 0.4 Basophils % 0.2 - RADIOLOGY Radiology Studies Ordered: Category Date Time Status CHEST CTA [CT] Stat CT Scan 10/21/18 17:00 Ordered CXRPORT [CHEST X-RAY PORTABLE*] [RAD] Stat Radiology 10/21/18 16:34 Taken - Medications Given in the ED: ED Medications Discontinued Medications Generic Name Dose Route Start Last Admin Trade Name Freq PRN Reason Stop Dose Admin Aspirin 325 mg 10/21/18 15:44 10/21/18 16:00 Asa - PO 10/21/18 15:45 325 mg ONCE ONE Administration Medical Decision Making - Medical Decision Making 10/21/18 17:23 Patient is 48M with history of PE and MD here today with chest pain. Vitals notable for tachycardia, bp stable. EKG shows NSR with new RSR' pattern in V1, no [id number]. ?St elevations in II, V4-V6 without reciprocal depressions. Bedside echo shows no effusion, small amount of bowing on ventricular wall into LV. Cardiology paged, concern mainly for PE vs ACS. Cr normal last visit, will bypass waiting for Cr result. 10/21/18 18:43 Trop 0.3, glucose 380. Cr normal. CBC normal. No gap. Case d/w Dr Stallings, recommends continuing Xarelto, calling pulm if further reqs needed. Trend trops. 10/21/18 19:09 CTA shows no PE. Pain slightly improved on reassessment, but still present. Will treat with nitro. 10/21/18 21:19 Patient not responding to nitro, having refractory pain. 10/22/18 01:25 Trop rising to 1.56. Inpatient team not comfortable taking care of patient at this time. Attempts made to reach cardiology unsuccessful. Case discussed with Dr Carcamo at [facility], will accept pending CCU bed. 10/22/18 01:49 [facility] full, not accepted at this time. 10/22/18 02:13 Case d/w Dr Stallings. Patient upgraded to ICU. *DC/Admit/Observation/Transfer Diagnosis at time of Disposition: Chest pain - Discharge Dispostion Condition at time of disposition: Critical Decision to Admit order: Yes - Referrals - Patient Instructions - Post Discharge Activity
[2018-10-21] MEDS ORDERED: NITROGLYCERIN SUBLINGUAL 1/150 0.4 MG TAB SL ONE (19:08)
[2018-10-21] MEDS ORDERED: NITROGLYCERIN SUBLINGUAL 1/150 0.4 MG TAB ONE (20:38)
[2018-10-21] MEDS ORDERED: MORPHINE SULFATE 2 MG/ML VIAL IVPUSH ONE (21:15)
[2018-10-21] MEDS ORDERED: morphine CARPU-JECT 4 MG/1 ML DISP.SYRIN IVPUSH ONE (21:27)
[2018-10-21] MEDS ORDERED: NITROGLYCERIN 50MG/D5W 250ML 50 MG/250 ML ML IVPB SCH (21:30)
[2018-10-21] MEDS ORDERED: NITROGLYCERIN 25MG/D5W 250ML 25 MG/250 ML ML IVPB ONE (21:48)
[2018-10-21] MEDS ORDERED: MORPHINE SULFATE 2 MG/ML VIAL ONE (21:48)
--- NOTE | 2018-10-21 22:53 | PN ---
Teaching Attending Note Name of Resident: Andrew Garcia ATTENDING PHYSICIAN STATEMENT I saw and evaluated the patient. I reviewed the resident's note and discussed the case with the resident. I agree with the resident's findings and plan as documented. SUBJECTIVE: Patient is a 48 year old man with PMH of NIDDM, HLD, HTN, CAD, PE (Dx at [facility] on 10/14/18, on Xarelto), [place] and recent cardiac stenting at [facility] presenting with pleuritic chest pain for the past two days with associated shortness of breath. Patient states that he was feeling better after his initial diagnosis but things have worsened. Patient professes compliance with his Xarelto, stating he never missed a dose. However, he did not know what the medication was and does not have the pill bottles available. No leg pain or swelling. Patient states that he doesn't know why he had a blood clot. Denies fevers, chills, nausea, vomiting. Denies arm/leg/facial weakness. Pain radiates to right and left shoulder. Pain better when he sits up and worse when he takes a deep breath. CTA did not show any pulmonary embolism. Initial troponin in the ER was 0.36 and his EKG was NSR with no significant ST-T wave changes. SL NTG did not relieve his pain. Cardiology was consulted b the ER staff and they did not think he needed to be transferred for coronary angiogram. They recommended repeat troponin and EKG and pain control with IV morphine and Nitroglycerin drip. 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 He has also had a chronic conjuctival injection. OBJECTIVE: Alert and in discomfort from pain Vital Signs Period Temp Pulse Resp BP Sys/Bates Pulse Ox Last 24 Hr 98.2 F 93-122 16-30 129-146/74-104 98-100 HEENT: No Jaundice, bilateral conjuctival injection; no eye discharge, PERRLA, EOMI. Normocephalic, atraumatic. External ears are normal and hearing is grossly intact. No nasal discharge. Neck: Supple, nontender. No palpable adenopathy or thyromegaly. No JVD Chest: Good effort. Clear to auscultation and percussion. Heart: Regular. No S3 or murmur. +rub Abdomen: Not distended, soft, nontender and no HSM. No rebound or guarding. Normal bowel sounds. Ext: Peripheral pulses intact. No leg edema. Skin: Warm and dry. No petechiae, rash or ecchymosis. Neuro: Alert. Oriented x3. CN 2-12 grossly intact. Sensation grossly intact in all four extremities and DTR are symmetric. Psych: Appropriate mood and affect. Good insight. Current Medications Generic Name Dose Route Start Last Admin Trade Name Kortney PRN Reason Stop Dose Admin Nitroglycerin/Dextrose 50 mg in 250 mls @ 3 mls/hr 10/21/18 21:30 10/21/18 22 :03 Nitroglycerin 50mg/D5w 250ml IVPB 10 mcg/min TITR JENNIFER 3 mls/hr Administration 10 MCG/MIN Home Medications Medication Instructions Recorded Atorvastatin Ca [Lipitor] 80 mg PO HS 10/21/18 Clopidogrel Bisulfate [Plavix] 75 mg PO DAILY 10/21/18 Lisinopril [Prinivil] 5 mg PO DAILY 10/21/18 Metformin HCl [Glucophage] 1,000 mg PO BID 10/21/18 Metoprolol Succinate [Toprol Xl] 25 mg PO DAILY 10/21/18 Rivaroxaban [Xarelto -] 20 mg PO DAILY 10/21/18 Rivaroxaban [Xarelto] 15 mg PO BID 10/21/18 predniSONE [Deltasone -] 5 mg PO DAILY 10/21/18 Abnormal Lab Results 10/21/18 15:45 Sodium 125 L Chloride 92 L Random Glucose 385 H* ALT 96 H Alkaline Phosphatase 132 H Troponin I 0.36 H Total Protein 8.9 H ASSESSMENT AND PLAN: 1. Chest pain - Though he has significant risk factors for acute IL, he may also have associated pericarditis and needs workup for autoimmune disease. No acute abnormality on CXR. Will check ESR, ISABEL, CRP, Lyme studies and get ECHO. Continue IV nitroglycerin as per cardiology pending repeat troponin and EKG. If his pain persists, will treat with steroids. Hyponatremia likely partly due to hyperglycemia. SIADH induced by pain may also be contributing to low sodium. Based on absent PE on his CTA today, the radiologist was consulted and a review of the initial CTA from last week has raised doubts about the original diagnosis of PE. Will reconsult pulmonary and cardiology for their input and review of his case to determine whether he really had a PE last week - thus the need to be on Xarelto going forward. 2. Uncontrolled DM For now, we will hold the home diabetes drugs and implement sliding scale insulin regimen. Provide comprehensive diabetes care with patient teaching and counseling about the importance of adherence to prescribed diabetes regimen, euglycemia, eye care and foot care. 3. Hypertension - Restart outpatient antihypertensive drugs and revise regimen to ensure smooth [id number] good BP control. Nonpharmacologic measures to control hypertension like weight loss, salt restriction and exercise discussed. 4. DVT prophylaxis - On Xarelto 5. Advance directives - Full code
[2018-10-22 00:24] LABS: URINE APPEARANCE CLEAR; URINE BILIRUBIN NEGATIVE (<2.0 mg/dL); URINE COLOR YELLOW; URINE GLUCOSE (UA) 1+ (NEGATIVE); URINE KETONE NEGATIVE (NEGATIVE); URINE LEUK ESTERASE NEGATIVE (NEGATIVE); URINE NITRITE NEGATIVE (NEGATIVE); URINE PROTEIN 2+ (NEGATIVE); URINE UROBILINOGEN NEGATIVE mg/dL (0.2-1.0)
[2018-10-22 00:41] LABS: URINE MUCUS RARE
[2018-10-22] MEDS ORDERED: MORPHINE SULFATE 2 MG/ML VIAL ONE ×2 (01:53→02:57)
[2018-10-22] MEDS ORDERED: NITROGLYCERIN 50MG/D5W 250ML 50 MG/250 ML ML IVPB SCH (02:03)
[2018-10-22] MEDS ORDERED: METOPROLOL TARTRATE 50 MG TABLET (FP) PO ONE (02:03)
[2018-10-22] MEDS ORDERED: METOPROLOL TARTRATE 50 MG TABLET (FP) ONE (02:06)
[2018-10-22] MEDS ORDERED: MORPHINE SULFATE 2 MG/ML VIAL IVPUSH PRN (02:17)
[2018-10-22] MEDS ORDERED: morphine CARPU-JECT 2 MG/1 ML DISP.SYRIN IVPUSH ONE (02:21)
--- NOTE | 2018-10-22 02:26 | CONSULT ---
Consultation: REQUESTING PROVIDER: Dr. Reyes CONSULT REQUEST: We have been asked to medically evaluate this patient for NSTEMI. HISTORY OF PRESENT ILLNESS: Patient is a 48 year old male with a significant PMHx of HTN, NIDDMII, HLD, CAD s/p recent [place] (09/06/18) with stent placement x3 at [facility], recent PE (on Xarelto) who presents here today for persistent diffuse chest pain that started on Wednesday (10/19/18) described as a squeezing, diffuse, nonradiating pain with no alleviating or exacerbating factors associated with abdominal pain and dyspnea on exertion. However, he did report to the ED staff and Medicine team that the pain is slightly alleviated when leaning forward. Patient rates the pain a 9/10 with worsening chest pain today, which prompted this hospital visit. Denies any diaphoresis or shortness of breath. Patient reports taking a dose of his Xarelto 0730 yesterday morning but unsure of the dose. In the ED patient had persistent chest pain and was started on a Nitro drips. EKG revealed <[address] elevation V4-V6. First Troponin was 0.3 and repeat one was 1.56. Agricultural Specialist was consulted and recommended ASA, Heparin drip, and Toprol. CTA done and revealed no PE. Patient otherwise, denies any fever, chills, nausea, vomiting, dizziness, loss of consciousness, Acute vision changes, hemoptysis, hematemesis, hematochezia, melena. Recent Travel: Denies PAST MEDICAL HISTORY: HTN HLD NIDDMII CAD s/p recent [place] (08/2018) Pulmonary Embolism PAST SURGICAL HISTORY: Cardiac stents x3 with the most recent 08/2018 Social History: Smoking: former smoker, quit (08/2018) Alcohol: Denies Drugs: Denies Family History: Denies REVIEW OF SYSTEMS: CONSTITUTIONAL: Absent: fever, chills, diaphoresis, generalized weakness, malaise, loss of appetite, weight change HEENT: Absent: rhinorrhea, nasal congestion, throat pain, throat swelling, difficulty swallowing, mouth swelling, ear pain, eye pain, visual changes CARDIOVASCULAR: chest pain Absent: syncope, palpitations, irregular heart rate, lightheadedness, peripheral edema RESPIRATORY: Absent: cough, shortness of breath, dyspnea with exertion, orthopnea, wheezing, stridor, hemoptysis GASTROINTESTINAL: abdominal pain Absent: abdominal distension, nausea, vomiting, diarrhea, constipation, melena, hematochezia GENITOURINARY: Absent: dysuria, frequency, urgency, hesitancy, hematuria, flank pain, genital pain MUSCULOSKELETAL: Absent: myalgia, arthralgia, joint swelling, back pain, neck pain SKIN: Absent: rash, itching, pallor HEMATOLOGIC/IMMUNOLOGIC: Absent: easy bleeding, easy bruising, lymphadenopathy, frequent infections ENDOCRINE: Absent: unexplained weight gain, unexplained weight loss, heat intolerance, cold intolerance NEUROLOGIC: Absent: headache, focal weakness or paresthesias, dizziness, unsteady gait, seizure, mental status changes, bladder or bowel incontinence PSYCHIATRIC: Absent: anxiety, depression, suicidal or homicidal ideation, hallucinations. PHYSICAL EXAMINATION Vital Signs 10/21/18 10/21/18 10/22/18 22:05 23:35 02:13 Temperature 98.1 F Pulse Rate Pulse Rate [ 106 H 109 H 107 H Apical] Respiratory 29 H 32 H 33 H Rate Blood Pressure Blood Pressure 129/74 130/76 112/64 [Left Arm] O2 Sat by Pulse 98 99 99 Oximetry (%) GENERAL: Awake, alert, and fully oriented, in mild acute distress. HEAD: Normal with no signs of trauma. EYES: Pupils equal, round and reactive to light, extraocular movements intact, sclera anicteric, conjunctival injections. ENT: Oropharynx clear without exudates. Dry mucous membranes. NECK: (-) JVD LUNGS: Breath sounds equal, clear to auscultation bilaterally. No wheezes, and no crackles. No accessory muscle use. HEART: Tachycardic with regular rhythm, normal S1 and S2 without murmur, rub or gallop. ABDOMEN: Soft, nontender upon palpation, not distended, normoactive bowel sounds , no guarding, no rebound, no masses. No hepatomegaly or splenomegaly. MUSCULOSKELETAL: No CVA tenderness. EXTREMITIES: No calf tenderness. No peripheral edema. NEUROLOGICAL: No focal deficits. Normal speech. Motor strength 5/5 bilaterally with sensory intact. No facial asymmetry PSYCHIATRIC: Cooperative. Good eye contact. Appropriate mood and affect. SKIN: Warm, dry, normal turgor, no rashes or lesions noted. Laboratory Results 10/21/18 15:55 10/21/18 15:45 10/21/18 10/21/18 15:45 22:03 Total Bilirubin 0.6 AST 24 ALT 96 H Alkaline Phosphatase 132 H Creatine Kinase 43 Troponin I 0.36 H 1.56 H* Urine Test Results Urine Color Yellow 10/21/18 23:30 Urine Appearance Clear 10/21/18 23:30 Urine pH 6.0 (5.0-8.0) 10/21/18 23:30 Ur Specific [place] 1.042 (1.010-1.035) H 10/21/18 23:30 Urine Protein 2+ (NEGATIVE) H 10/21/18 23:30 Urine Glucose (UA) 1+ (NEGATIVE) H 10/21/18 23:30 Urine Ketones Negative (NEGATIVE) 10/21/18 23:30 Urine Blood Negative (NEGATIVE) 10/21/18 23:30 Urine Nitrite Negative (NEGATIVE) 10/21/18 23:30 Urine Bilirubin Negative (<2.0 mg/dL) 10/21/18 23:30 Ur Leukocyte Esterase Negative (NEGATIVE) 10/21/18 23:30 Urine Mucus Rare 10/21/18 23:30 Active Medications Generic Name Dose Route Start Last Admin Trade Name Freq PRN Reason Stop Dose Admin Chlorhexidine Gluconate 1 applic 10/22/18 22:00 Hibiclens For Decolonization - TP HS JENNIFER Nitroglycerin/Dextrose 50 mg in 250 mls @ 6 mls/hr 10/22/18 02:03 10/22/18 02 :13 Nitroglycerin 50mg/D5w 250ml IVPB 20 mcg/min TITR JENNIFER 6 mls/hr Administration 20 MCG/MIN Sodium Chloride 1,000 mls @ 100 mls/hr 10/22/18 02:30 Normal Saline - IV ASDIR [facility] Insulin Aspart 0 vial 10/22/18 07:00 Novolog Vial Sliding Scale - SQ ACHS [facility] Protocol Morphine Sulfate 2 mg 10/22/18 02:17 Morphine Sulfate IVPUSH Q4H PRN PAIN LEVEL 6-10 Mupirocin 1 applic 10/22/18 10:00 Bactroban Ointment (For Decolonization) - NS 10/27/18 09:59 BID [facility] ASSESSMENT/PLAN: Patient is a 48 year old male with a significant Cardiac PMHx of [place] (08/2018), CAD s/p 3 stents, recent PE (on Xarelto) who presents for persistent chest pain in the last two days and was found to have NSTEMI. Patient placed on Nitro drip and admitted to ICU for further monitoring and management. Neuro: -AAO x3 -On no sedation PULMONARY: #Hx of PE -Currently on Xarelto with last dose taken yesterday morning and unsure of dose -Repeat CTA done and revealed no definite PE -Patient now started on Heparin drip -Maintain 02 saturation >95% -Continue with 02 NC CARDIAC #NSTEMI -Initial trop 0.36. Second one 1.56 with third one pending 6 hours later -EKG showing <[address] elevation V4-V6. With repeat just ordered, as per cardiology -Nitro drip started -Cardiology recommended Heparin drip with no Bolus -Metoprolol Tartrate 50mg once given, Morphine 4mg IVP given, and loading dose ASA 325mg po given in ED -Continue Metoprolol Succinate 25mg daily, Lipitor 80mg HS, Lisinopril 5mg daily , Morphine 2mg IVP Q4H PRN -Continue to trend troponins -Continues cardiac monitoring in ICU -Patient accepted to [facility] and awaiting bed. If patient is to have elevated ST elevation, will need emergent transfer to cardiac cath at [facility] #Possible Myopericarditis -Due to history of chest pain worsened by deep inspiration and lying flat and alleviation by sitting up and leaning forward. -ASA 1000mg Aspirin but will hold off on colchicine, as per cardiology and medicine team ordered -Protonic 40mg IVP daily #HTN -Controlled -Continue home medications Metoprolol 25mg daily and Lisinopril 5mg daily -Continue to monitor BP #CAD -Continue Aspirin, Metoprolol, Lipitor #HLD -Continue Lipitor 80mg HS ENDOCRINE #NIDDM -BGM -ISS -Hold oral medication F/E/N -IV NS @100cc/hr -Hyponatremia. Replete and repeat -NPO Prophylaxis -Heparin drip for DVT -Protonix 40mg IVP for GI Disposition -Full code -Awaiting CCU bed in [facility] Clary Mathis [id number] Visit type - Emergency Visit Emergency Visit: Yes ED Registration Date: 10/22/18 Care time: The patient presented to the Emergency Department on the above date and was hospitalized for further evaluation of their emergent condition. - New Patient This patient is new to me today: Yes Date on this admission: 10/22/18 - Critical Care Critical Care patient: Yes Total Critical Care Time (in minutes): 36 Critical Care Statement: The care of this patient involved high complexity decision making to prevent further life threatening deterioration of the patient 's condition and/or to evaluate & treat vital organ system(s) failure or risk of failure.
[2018-10-22] MEDS ORDERED: SODIUM CHLORIDE 1,000 ML IV SCH (02:30)
--- NOTE | 2018-10-22 02:31 | CON.CARD ---
Cardiology Consult (text) - Consultation Consultation Note: Called earlier by Dr. Irwin on pt in ER with chest pain (i.e. 10/21 evening). Informed me that pt's first troponin was negative and ECG unremarkable. Pt with h/o LAD stent in 08/27 and presentation with PE treated with Xarelto approx 2 wks ago. ECG sent to me for review which showed no significant change vs prior, no findings of ST elevation or depression. Pt was at CT to r/o PE. Dr. Irwin called back later and informed me had ongoing chest pain, CTA was negative for PE or aorta pathology. Per Dr. Irwin the second troponin had not yet been drawn, ditto for 2nd ECG. Dr. Irwin explained that he had admitted pt to hospitalist service but that the hospitalist refused to accept the pt b/c he felt he should be transferred for cath at a tertiary center. I advised repeat enzymes and ECG since at the present time there is no diagnosis of ischemic chest pain. I advised nitro trial to observe if CP responds. Also, since the pain was reportedly with a pleuritic component, i recommended giving a trial of morphine and NSAID such as Toradol. Explained that if pt rules in, that he is an NSTEMI based on the initial ECG and the treatment is maximal medical therapy with transfer for cath only for refractory angina (or CHF, shock, or ventricular arrhythmia none of which have been present). I was called back subsequently and informed that his troponin was 1.5. Initial trop was in fact not "negative", but rather was 0.3 (from 0.03 couple weeks ago). The repeat ECG was faxed to me and is equivocal, with <[address] elevation V4-V6. Pt at that time reportedly on 6 of nitro gtt--I asked this to be doubled. HR tachycardic at 100+, requested dose of metoprolol be given (50 po X1). I contacted Dr. Carcamo telemedicine physician and reviewed ECG with him-- pt to be transferred to [facility] now and they will evaluate him and decide on timing of cath depending on if ECG progressed and how CP responds to max medical therapy.
--- NOTE | 2018-10-22 02:41 | HP ---
CHIEF COMPLAINT: PCP: HISTORY OF PRESENT ILLNESS: 48 yo M with PMHx of [place] (09/06/18) s/p stent placement x 3 at [facility], hypertension, DMII, and recent PE(on Xarelto) who presents to the ER with chest pain for 2 days. He states for the past two days he has had worsening chest pain. He describes 10/10 constant pressure chest pain located like a band across anterior chest with radiation to back. Pain is worsened by deep inspiration and lying flat. Pain is alleviated by sitting up and leaning forward. He took his xarelto today as well as aspirin given in ER. He was just recently discharged with diagnosis of PE. Denies LERMA, palpitations, abdominal pain, fever , chills, nausea or vomiting. ER course was notable for: (1)EKG shows tachycardia with St elevations in II, V4-V6 without reciprocal depressions (2)troponin have risen from 0.3--> 1.56 (3)Nitro drip started. Recent Travel:denies PAST MEDICAL HISTORY: CAD, HTN, NIDDM and PE PAST SURGICAL HISTORY: stent x3 in Aug 2018 Social History: Smoking:Quit in Aug 2018 Alcohol:denies Drugs: denies Family History: Allergies No Known Allergies Allergy (Verified 10/21/18 15:41) HOME MEDICATIONS: Home Medications Medication Instructions Recorded Atorvastatin Ca [Lipitor] 80 mg PO HS 10/21/18 Clopidogrel Bisulfate [Plavix] 75 mg PO DAILY 10/21/18 Lisinopril [Prinivil] 5 mg PO DAILY 10/21/18 Metformin HCl [Glucophage] 1,000 mg PO BID 10/21/18 Metoprolol Succinate [Toprol Xl] 25 mg PO DAILY 10/21/18 Rivaroxaban [Xarelto -] 20 mg PO DAILY 10/21/18 Rivaroxaban [Xarelto] 15 mg PO BID 10/21/18 predniSONE [Deltasone -] 5 mg PO DAILY 10/21/18 REVIEW OF SYSTEMS CONSTITUTIONAL: Absent: fever, chills, diaphoresis, generalized weakness, malaise, loss of appetite, weight change HEENT: Absent: rhinorrhea, nasal congestion, throat pain, throat swelling, difficulty swallowing, mouth swelling, ear pain, eye pain, visual changes CARDIOVASCULAR: chest pain, Absent: syncope, palpitations, irregular heart rate, lightheadedness, peripheral edema RESPIRATORY: shortness of breath, dyspnea with exertion Absent: cough, orthopnea, wheezing, stridor, hemoptysis GASTROINTESTINAL: Absent: abdominal pain, abdominal distension, nausea, vomiting, diarrhea, constipation, melena, hematochezia GENITOURINARY: Absent: dysuria, frequency, urgency, hesitancy, hematuria, flank pain, genital pain MUSCULOSKELETAL: Absent: myalgia, arthralgia, joint swelling, back pain, neck pain SKIN: Absent: rash, itching, pallor HEMATOLOGIC/IMMUNOLOGIC: Absent: easy bleeding, easy bruising, lymphadenopathy, frequent infections ENDOCRINE: Absent: unexplained weight gain, unexplained weight loss, heat intolerance, cold intolerance NEUROLOGIC: Absent: headache, focal weakness or paresthesias, dizziness, unsteady gait, seizure, mental status changes, bladder or bowel incontinence PSYCHIATRIC: Absent: anxiety, depression, suicidal or homicidal ideation, hallucinations. PHYSICAL EXAMINATION Vital Signs - 24 hr 10/21/18 10/21/18 10/21/18 15:41 17:43 20:43 Temperature 98.2 F Pulse Rate 122 H Pulse Rate [ 93 H 105 H Apical] Respiratory 16 18 30 H Rate Blood Pressure 146/104 H Blood Pressure 130/88 134/88 [Left Arm] O2 Sat by Pulse 100 98 98 Oximetry (%) 10/21/18 10/21/18 10/22/18 22:05 23:35 02:13 Temperature 98.1 F Pulse Rate Pulse Rate [ 106 H 109 H 107 H Apical] Respiratory 29 H 32 H 33 H Rate Blood Pressure Blood Pressure 129/74 130/76 112/64 [Left Arm] O2 Sat by Pulse 98 99 99 Oximetry (%) GENERAL: AAOx3, mod distress. HEAD: NCAT EYES: PERRLA,EOMI, injected bilateral conjunctiva clear. No lid lag. EARS, NOSE, THROAT: Dry mucous membranes. NECK: supple without lymphadenopathy, JVD, or masses. LUNGS:diminished breath sounds. No wheezes, and no crackles. No accessory muscle use. HEART:Tachycardic, normal S1 and S2 without murmur, rub or gallop. ABDOMEN: Soft, NTND,NABS, no guarding, no rebound, no masses. No hepatomegaly or splenomegaly. MUSCULOSKELETAL: Normal range of motion at all joints. No bony deformities or tenderness. No CVA tenderness. LOWER EXTREMITIES: 2+ pulses, warm, well-perfused. No calf tenderness. No peripheral edema. NEUROLOGICAL: Cranial nerves II-XII intact. Normal speech. PSYCHIATRIC: Cooperative. Good eye contact. Appropriate mood and affect. SKIN: Warm, dry, normal turgor, no rashes or lesions noted, normal capillary refill. Laboratory Results - last 24 hr 10/21/18 10/21/18 10/21/18 15:45 15:45 15:55 WBC 6.3 RBC 4.62 Hgb 14.4 Hct 41.5 MCV 89.7 MCH 31.2 MCHC 34.7 RDW 12.3 Plt Count 312 D MPV 9.0 D Absolute Neuts (auto) 4.7 Neutrophils % 74.8 Lymphocytes % 16.9 D Monocytes % 7.7 Eosinophils % 0.4 Basophils % 0.2 Nucleated RBC % 0 PT with INR 12.10 INR 1.03 Sodium 125 L Potassium 4.4 Chloride 92 L Carbon Dioxide 25 Anion Gap 8 BUN 11 Creatinine 0.8 Creat Clearance w eGFR 102.32 Random Glucose 385 H* Calcium 8.9 Total Bilirubin 0.6 AST 24 ALT 96 H Alkaline Phosphatase 132 H Creatine Kinase 43 Troponin I 0.36 H Total Protein 8.9 H Albumin 3.5 Urine Color Urine Appearance Urine pH Ur Specific Leblanc Urine Protein Urine Glucose (UA) Urine Ketones Urine Blood Urine Nitrite Urine Bilirubin Urine Urobilinogen Ur Leukocyte Esterase Urine WBC (Auto) Urine RBC (Auto) Urine Mucus 10/21/18 10/21/18 22:03 23:30 WBC RBC Hgb Hct MCV MCH MCHC RDW Plt Count MPV Absolute Neuts (auto) Neutrophils % Lymphocytes % Monocytes % Eosinophils % Basophils % Nucleated RBC % PT with INR INR Sodium Potassium Chloride Carbon Dioxide Anion Gap BUN Creatinine Creat Clearance w eGFR Random Glucose Calcium Total Bilirubin AST ALT Alkaline Phosphatase Creatine Kinase Troponin I 1.56 H* Total Protein Albumin Urine Color Yellow Urine Appearance Clear Urine pH 6.0 Ur Specific Leblanc 1.042 H Urine Protein 2+ H Urine Glucose (UA) 1+ H Urine Ketones Negative Urine Blood Negative Urine Nitrite Negative Urine Bilirubin Negative Urine Urobilinogen Negative Ur Leukocyte Esterase Negative Urine WBC (Auto) 1 Urine RBC (Auto) <1 Urine Mucus Rare ASSESSMENT/PLAN: 48 yo M with PMHx of [place] (09/06/18) s/p stent placement x 3 at [facility], hypertension, DMII, and recent PE(on Xarelto) who presents to the ER with chest pain for 2 days found to have NSTEMI and admitted to ICU for further management. Problem List - Problem (1) NSTEMI (non-ST elevated myocardial infarction) Assessment/Plan: * admit to ICU * Nitro drip * heparin drip * Dr. Stallings consulted * cardiac monitoring * trend trops. * will give 1000mg ASA for possible myopericarditis. * Patient has been [facility] but no CCU bed available. ED spoke with Dr. Carcamo. (2) DM type 2 (diabetes mellitus, type 2) Assessment/Plan: * ADA diet * BGM ACHS * ISS ACHS * hold metformin. (3) History of pulmonary embolism Assessment/Plan: Spoke with Dr. Sifuentes who states there is no PE seen on repeat CTA. * Continue Xarelto (4) HTN (hypertension) (5) CAD (coronary artery disease) Visit type - Emergency Visit Emergency Visit: Yes ED Registration Date: 10/22/18 Care time: The patient presented to the Emergency Department on the above date and was hospitalized for further evaluation of their emergent condition. - New Patient This patient is new to me today: Yes Date on this admission: 10/24/18 - Critical Care Critical Care patient: Yes Total Critical Care Time (in minutes): 63 Critical Care Statement: The care of this patient involved high complexity decision making to prevent further life threatening deterioration of the patient 's condition and/or to evaluate & treat vital organ system(s) failure or risk of failure.
[2018-10-22] MEDS ORDERED: ASPIRIN 325 MG TABLET PO ONE (02:59)
[2018-10-22] MEDS ORDERED: HEPARIN NA (PORCINE) 5,000 UNITS/ML 1ML VIAL IVPUSH PRN ×2 (03:03)
[2018-10-22] MEDS ORDERED: HEPARIN - 25,000 UNIT in SODIUM CHLORIDE 495 ML IV SCH (03:15)
[2018-10-22] MEDS ORDERED: PANTOPRAZOLE SODIUM 40 MG VIAL IVPUSH SCH (03:15)
[2018-10-22] MEDS ORDERED: PANTOPRAZOLE SODIUM 40 MG VIAL ONE (03:16)
[2018-10-22] MEDS ORDERED: ASPIRIN 325 MG TABLET ONE (03:16)
[2018-10-22] MEDS ORDERED: HEPARIN INFUSION - 25,000 UNITS/500 ML INFUS.BAG IVPB ONE (03:17)
[2018-10-22] MEDS ORDERED: MIDAZOLAM HCL 2 MG/2 ML SINGLE DOSE VIAL IVPUSH ONE (03:35)
[2018-10-22 06:17] VITALS: BMI 24.7
[2018-10-22] MEDS ORDERED: PNEUMOC 13-VAL CONJ-DIP CRM/PF 0.5 ML DISP.SYRIN IM ONE (06:17)
[2018-10-22 06:23] VITALS: TEMP 98.2
[2018-10-22] MEDS ORDERED: INSULIN SLIDING SCALE (NOVOLOG) 1 VIAL SQ SCH (07:00)
[2018-10-22] MEDS: INSULIN SLIDING SCALE (NOVOLOG) 1 VIAL SQ SCH ×2 (08:00→11:23)
--- NOTE | 2018-10-22 08:18 | PN ---
Progress Note, Physician Chief Complaint: chest pain - Current Medication List Current Medications: Active Medications Atorvastatin Calcium (Lipitor -) 80 mg PO HS [facility] Chlorhexidine Gluconate (Hibiclens For Decolonization -) 1 applic TP HS [facility] Heparin Sodium (Porcine) (Heparin -) 1,000 unit IVPUSH PRN PRN PRN Reason: Heparin Heparin Sodium (Porcine) (Heparin -) 5,000 unit IVPUSH PRN PRN PRN Reason: Heparin Nitroglycerin/Dextrose (Nitroglycerin 50mg/D5w 250ml) 50 mg in 250 mls @ 6 mls/ hr IVPB TITR [facility] Last Titration: 10/22/18 07:45 Dose: 10 mcg/min, 3 mls/hr Sodium Chloride (Normal Saline -) 1,000 mls @ 100 mls/hr IV ASDIR JENNIFER Last Admin: 10/22/18 03:03 Dose: 100 mls/hr Heparin Sodium (Porcine) 25, (000 unit/ Sodium Chloride) 500 mls @ 20 mls/hr IV TITR [facility]; Protocol Last Admin: 10/22/18 03:27 Dose: 1,000 unit/hr, 20 mls/hr Influenza Virus Vaccine Quadrival (Flulaval Quad [id number]) 60 mcg IM .ONCE ONE Stop: 10/22/18 10:01 Insulin Aspart (Novolog Vial Sliding Scale -) 1 vial SQ ACHS [facility]; Protocol Last Admin: 10/22/18 08:00 Dose: 4 units Lisinopril (Prinivil) 5 mg PO DAILY [facility] Metoprolol Succinate (Toprol Xl -) 25 mg PO DAILY [facility] Morphine Sulfate (Morphine Sulfate) 2 mg IVPUSH Q4H PRN PRN Reason: PAIN LEVEL 6-10 Last Admin: 10/22/18 05:14 Dose: 2 mg Mupirocin (Bactroban Ointment (For Decolonization) -) 1 applic NS BID [facility] Stop: 10/27/18 09:59 Pantoprazole Sodium (Protonix Iv) 40 mg IVPUSH DAILY [facility] Last Admin: 10/22/18 03:28 Dose: 40 mg Pneumococcal Polyvalent Vaccine (Pneumovax -) 0.5 ml IM .ONCE ONE Stop: 10/22/18 10:01 - Objective Vital Signs: Vital Signs Temperature 98.2 F 10/22/18 05:00 Pulse Rate 79 10/22/18 06:04 Respiratory Rate 12 03/16/19 06:04 Blood Pressure 103/63 10/22/18 06:04 O2 Sat by Pulse Oximetry (%) 99 10/22/18 06:04 c/o chest pain 10/10, intermittent worse with breathing. denies nausea, headache Constitutional: Yes: Mild Distress Eyes: Yes: Conjunctiva Clear, EOM Intact, PERRL HENT: Yes: Atraumatic, Normocephalic Neck: Yes: Supple, Trachea Midline Cardiovascular: Yes: Regular Rate and Rhythm, S1, S2, Other (Chest tender to palpation). No: Tachycardia Respiratory: Yes: Poor Air Entry, Wheezes Gastrointestinal: Yes: Normal Bowel Sounds, Soft Musculoskeletal: Yes: WNL Extremities: Yes: WNL Edema: No Peripheral Pulses WNL: Yes Neurological: Yes: Alert, Oriented Labs: CBC, BMP 10/21/18 15:55 10/21/18 15:45 INR, PTT INR 1.03 (0.83-1.09) 10/21/18 15:45 Assessment/Plan 48 yr old man with DM, HTN, and recent stent placement presented with worsening chest pain awaiting transfer to [facility] for further cardiac evaluation and treatment. spoke to minute clerk for basic traffic, dr. Jeronimo, at [facility], transfer has been initiated. pt with ongoing chest pain. images of overnight and current EKG's and labs sent to Fellow for review. pt consents to transfer - Cardiovascular - chest pain; AK vs bal/samreen-carditis - requires further evaluation at [facility], awaiting transfer - nitro gtt, morphine/ofirmev prn for pain, received ASA and lipitor in ED, on heparin drip currently - metoprolol 25mg po - Respiratory - maintaining airway, saturating well on RA - Fluids, electrolytes, nutrition - npo for possible interventions - hypomag - IV repletion - Hyponatremia - on NS IVF @100cc/hr, improving - Hematology - hx of PE, on xarelto at home, no PE seen on CTA - Endocrine - DM - BGM/NISS - hold oral medications - Prophylaxis - protonix prophylaxis for GI - VTE - on heparin drip Dispo - transferred to [facility]
[2018-10-22 08:26] VITALS: PULSE 82
[2018-10-22 08:30] VITALS: BP 98/62
[2018-10-22 08:59] LABS: BASO % 0.3 % (0-2.0); EOS % 0.3 % (0-4.5); HEMATOCRIT 33.3 % (35.4-49); HEMOGLOBIN 11.9 GM/dL (11.7-16.9); LYMPH % 20.9 % (8-40); MCH 31.5 pg (25.7-33.7); MCHC 35.7 g/dl (32.0-35.9); MEAN CELL VOLUME 88.4 fl (80-96); MEAN PLT VOLUME 9.4 fl (7.5-11.1); MONO % 9.1 % (3.8-10.2); NEUT % 69.4 % (42.8-82.8); PLATELET COUNT 207 K/MM3 (134-434); RBC 3.77 M/mm3 (4.00-5.60); WHITE BLOOD COUNT 4.5 K/mm3 (4.0-10.0)
[2018-10-22] MEDS ORDERED: ACETAMINOPHEN 1000 MG/100 ML VIAL (NON FORMULARY) IVPB ONE (09:06)
[2018-10-22] MEDS ORDERED: MORPHINE SULFATE 2 MG/ML VIAL IVPUSH ONE (09:15)
[2018-10-22 09:22] LABS: ALBUMIN 2.6 g/dl (3.4-5.0); ALK PHOS 84 U/L (45-117); ANION GAP 5 MMOL/L (8-16); BILIRUBIN,TOTAL 0.4 mg/dL (0.2-1); BLOOD UREA NITROGEN 14 mg/dL (7-18); CALCIUM 7.6 mg/dL (8.5-10.1); CHLORIDE 96 mmol/L (98-107); CO2 27 mmol/L (21-32); CREATININE 0.7 mg/dL (0.55-1.3); GLUCOSE,RANDOM 193 mg/dL (74-106); MAGNESIUM 1.8 mg/dL (1.8-2.4); PHOSPHOROUS 3.5 mg/dL (2.5-4.9); POTASSIUM 4.5 mmol/L (3.5-5.1); SGOT/AST 18 U/L (15-37); SGPT/ALT 60 U/L (13-61); SODIUM 128 mmol/L (136-145)
[2018-10-22] MEDS ORDERED: MUPIROCIN 2% TOPICAL OINTMENT FOR DECOLONIZATION NS SCH (10:00)
[2018-10-22] MEDS ORDERED: metoPROLOL SUCCINATE 25 MG TAB.SR.24H (FP) PO SCH (10:00)
[2018-10-22] MEDS ORDERED: PNEUMOCOCCAL 23 VACCINE 0.5 ML VIAL IM ONE (10:00)
[2018-10-22] MEDS ORDERED: LISINOPRIL 5 MG TABLET (FP) PO SCH (10:00)
[2018-10-22] MEDS ORDERED: FLU VACCINE QUAD 60 MCG/0.5 ML (MDV 18-19) IM ONE (10:00)
[2018-10-22] MEDS ORDERED: MAGNESIUM SULF 50% (8.12 MEQ/2 ML-1 GM VIAL) ONE (10:36)
--- NOTE | 2018-10-22 10:36 | PN ---
Teaching Attending Note Name of Resident: Linda Gillespie ATTENDING PHYSICIAN STATEMENT I saw and evaluated the patient. I reviewed the resident's note and discussed the case with the resident. I agree with the resident's findings and plan as documented. SUBJECTIVE: Pt seen and examined in the ICU. Still with intermittent chest pain requiring morphine IVP. Remains on nitro gtt. For transfer to [facility] CCU. OBJECTIVE: Vital Signs Period Temp Pulse Resp BP Sys/Bates Pulse Ox Last 24 Hr 98.1 F-98.8 F 77-122 12-33 98-146/51-104 98-100 Intake & Output 10/19/18 10/20/18 10/21/18 10/22/18 23:59 23:59 23:59 23:59 Intake Total 132 Balance 132 Weight 72.575 kg 73.7 kg Gen: NAD at rest Heart: RRR Lung: decreased breath sounds at the bases Abd: soft, nontender Ext: no edema CBC, BMP 10/22/18 08:08 10/22/18 08:08 Active Medications Atorvastatin Calcium (Lipitor -) 80 mg PO HS [facility] Chlorhexidine Gluconate (Hibiclens For Decolonization -) 1 applic TP HS [facility] Heparin Sodium (Porcine) (Heparin -) 1,000 unit IVPUSH PRN PRN PRN Reason: Heparin Heparin Sodium (Porcine) (Heparin -) 5,000 unit IVPUSH PRN PRN PRN Reason: Heparin Nitroglycerin/Dextrose (Nitroglycerin 50mg/D5w 250ml) 50 mg in 250 mls @ 6 mls/ hr IVPB TITR [facility] Last Titration: 10/22/18 07:45 Dose: 10 mcg/min, 3 mls/hr Sodium Chloride (Normal Saline -) 1,000 mls @ 100 mls/hr IV ASDIR [facility]ENN[facility] Last Admin: 10/22/18 03:03 Dose: 100 mls/hr Heparin Sodium (Porcine) 25, (000 unit/ Sodium Chloride) 500 mls @ 20 mls/hr IV TITR [facility]; Protocol Last Admin: 10/22/18 03:27 Dose: 1,000 unit/hr, 20 mls/hr Insulin Aspart (Novolog Vial Sliding Scale -) 1 vial SQ ACHS [facility]; Protocol Last Admin: 10/22/18 08:00 Dose: 4 units Lisinopril (Prinivil) 5 mg PO DAILY [facility] Magnesium Sulfate (Magnesium Sulfate) 1 gm IVPB ONCE ONE Stop: 10/22/18 10:34 Metoprolol Succinate (Toprol Xl -) 25 mg PO DAILY [facility] Morphine Sulfate (Morphine Sulfate) 2 mg IVPUSH Q4H PRN PRN Reason: PAIN LEVEL 6-10 Last Admin: 10/22/18 05:14 Dose: 2 mg Mupirocin (Bactroban Ointment (For Decolonization) -) 1 applic NS BID [facility] Stop: 10/27/18 09:59 Pantoprazole Sodium (Protonix Iv) 40 mg IVPUSH DAILY [facility] Last Admin: 10/22/18 03:28 Dose: 40 mg ASSESSMENT AND PLAN: Acute NSTEMI CAD with recent stent h/o PE Hyponatremia HTN DM Hyperlipidemia - continue anticoagulation - ASA, statin - beta xavi - trend cardiac enzymes, EKGs - nitro gtt - morphine as needed - O2 - for transfer to [facility] for cardiac catheterization
[2018-10-22] MEDS ORDERED: MAGNESIUM SULF 50% (8.12 MEQ/2 ML-1 GM VIAL) IVPB ONE (10:45)
--- NOTE | 2018-10-22 10:47 | CON.CARD ---
Consult Consult Specialty:: cardio - History of Present Illness Chief Complaint: cp History of Present Illness: see short form note for overnight events 48 M here with CP. ER course: CTA no PE (quesioned prior dx of small PE), no aorta pathology trop 0.3 (from 0.03 recently)-->1.5 overnight ECG no ischemia (shy of 1mm ST elev V4-V6 on 2nd one, then normalized on 3rd) case d/w interventional cardio at [facility] who reviewed ECG--agreed no indication of STEMI. given dx of NSTEMI, plan was max med mgmt and cath if sx's persist. given SL nitro in ER, then nitro GTT started. due to h/o similar sx's 08/27 without thrombotic lesion on cath then, and again with PE dx now in question, sx's appear chronic, relapsing. pleuritic component reported, with relief sitting up (similar to reports in ER in 08/27)--? pericarditis. started on UFH gtt (last dose xarelto 7:30 am on 10/21) and given ASA 1200 mg for NSAID tx of pericarditis possibility. also given morphine PRNs in ICU overnight remained hemodynamically stable throughout. trop peaked at 1.5--coming down Na 125 (gluc > 300)-->improving albumin low PRESENTLY: RN confirms pain responded to morphine this AM, then returned. pt states currently having signif CP again, but better than when came in. denies sob, palpitations at present PMH: DM--new dx, not treated ? PE--as above CAD s/ PCI 08/27 - Alcohol/Substance Use Hx Alcohol Use: Yes (DAILY) - Smoking History Smoking history: Former smoker Have you smoked in the past 12 months: No Aproximately how many cigarettes per day: 10 If you are a former smoker, when did you quit?: 08/2018 Home Medications - Allergies Allergies/Adverse Reactions: Allergies Allergy/AdvReac Type Severity Reaction Status Date / Time No Known Allergies Allergy Verified 10/21/18 15:41 - Home Medications Home Medications: Ambulatory Orders Atorvastatin Ca [Lipitor] 80 mg PO HS 10/21/18 Clopidogrel Bisulfate [Plavix] 75 mg PO DAILY 10/21/18 Lisinopril [Prinivil] 5 mg PO DAILY 10/21/18 Metformin HCl [Glucophage] 1,000 mg PO BID 10/21/18 Metoprolol Succinate [Toprol Xl] 25 mg PO DAILY 10/21/18 Rivaroxaban [Xarelto -] 20 mg PO DAILY 10/21/18 Rivaroxaban [Xarelto] 15 mg PO BID 10/21/18 predniSONE [Deltasone -] 5 mg PO DAILY 10/21/18 Chlorhexidine Gluconate [Hibiclens For Decolonization -] 1 applic TP HS bottle 10/22/18 Heparin - 5,000 unit IVPUSH PRN PRN vial 10/22/18 Heparin - 25,000 unit IV TITR vial 10/22/18 Insulin Sliding Scale [Novolog Vial Sliding Scale -] 0 vial SQ ACHS units 10/22 Insulin Sliding Scale [Novolog Vial Sliding Scale -] 1 vial SQ ACHS units 10/22 Lisinopril [Prinivil] 5 mg PO DAILY tablet 10/22/18 Mupirocin Ointment [Bactroban Ointment (For Decolonization) -] 1 applic NS BID applic 10/22/18 Pantoprazole Sodium [Protonix IV] 40 mg IVPUSH DAILY vial 10/22/18 Family Disease History - Family Disease History Family History: Denies (no known CMP) Review of Systems - Review of Systems Constitutional: denies: Chills, Fever Eyes: denies: Eye Pain HENT: denies: Nasal Congestion Neck: denies: Stiffness Cardiovascular: denies: Palpitations Respiratory: denies: Orthopnea, PND Gastrointestinal: denies: Diarrhea, Rectal Bleeding Genitourinary: denies: Burning, Hematuria Musculoskeletal: denies: Muscle Pain Integumentary: denies: Rash Neurological: denies: Numbness, Seizure, Syncope Endocrine: denies: Excessive Sweating Hematology/Lymphatic: denies: Excessive Bleeding Vital Signs: Vital Signs Temperature 98.2 F 10/22/18 05:00 Pulse Rate 82 10/22/18 08:29 Respiratory Rate 12 10/22/18 08:29 Blood Pressure 98/62 10/22/18 08:29 O2 Sat by Pulse Oximetry (%) 99 10/22/18 08:26 Constitutional: Yes: Well Nourished, No Distress Eyes: No: Sclera Icterus HENT: No: Nasal Congestion Neck: No: Decreased ROM Respiratory: Yes: CTA Bilaterally. No: Accessory Muscle Use, Rales, Wheezes Gastrointestinal: Yes: Normal Bowel Sounds. No: Distention, Hepatomegaly, Palpable Mass, Tenderness Cardiovascular: Yes: Regular Rate and Rhythm JVD: No Carotid Bruit: No PMI: Non-Displaced Heart Sounds: Yes: S1, S2. No: Gallop, Rub Murmur: No: Systolic Murmur, Diastolic Murmur Musculoskeletal: Yes: Other (No kyphosis) Extremities: No: Cool, Cyanosis Edema: No Peripheral Pulses: 2+ Left Carotid, 2+ Right Carotid, 2+ Left Doralis Pedis, 2+ Right Dorsalis Pedis Integumentary: No: Jaundice Neurological: Yes: Alert, Oriented (x3) Psychiatric: No: Agitated - Other Data Labs, Other Data: CBC, BMP 10/22/18 08:08 10/22/18 08:08 INR, PTT INR 1.03 (0.83-1.09) 10/21/18 15:45 Troponin, BNP 10/21/18 10/21/18 10/22/18 15:45 22:03 08:08 Troponin I 0.36 H 1.56 H* 1.01 H* Troponin, BNP 10/21/18 10/21/18 10/22/18 15:45 22:03 08:08 Troponin I 0.36 H 1.56 H* 1.01 H* Laboratory Tests 10/21/18 10/21/18 10/22/18 15:45 22:03 08:08 WBC 4.5 Hgb 11.9 Plt Count 207 D Sodium Potassium Carbon Dioxide BUN Creatinine Random Glucose AST ALT Troponin I 0.36 H 1.56 H* Albumin 10/22/18 08:08 WBC Hgb Plt Count Sodium 128 L Potassium 4.5 Carbon Dioxide 27 BUN 14 Creatinine 0.7 Random Glucose 193 H AST 18 ALT 60 Troponin I 1.01 H* Albumin 2.6 L Assessment/Plan ECG: NSR, no ischemic changes (x3) CTA chest: no PE, no aorta dissection (or aneurysm noted). trace L effusion ( decr in size vs 10/14). mild ATX. no peric effusion. ? splenomegaly, mildly prominent LNs (mediastinum) h/o CAD, NSTEMI: -diagnosis uncertain. -similar presentation with atypical sx's including pleuritic/positional component 08/27--cath with chronic-appearing (i.e. not-thrombotic) LAD lesion s/ p PCI. -no residual obstructive CAD on that cath -no friction rub. CRP in 08/27 only 0.5 then, ESR 44-->both being repeated now -CP early 10/25 with dx of small PE now questioned on repeat CT reading by radiology--but no troponin elevation at that time -continue NSAIDs (aspirin) for ? pericarditis -cont heparin gtt for possible ACS -continue nitro GTT as bp tolerates -hi intensity statin, BB as doing -for transfer to [facility] for cath (EMS arrived for transport) DM: -new dx, not controlled on presentation here -per hospitalist, crit care hypoalbuminemia, ? splenomgaly, mild mediastinal LAD, chronic conjunctival injection: -per hospitalist est time spent in data review, pt exam, formulating mgmt plan of potentially life threatening complications = 38 min
--- NOTE | 2018-10-22 13:11 | EKG ---
Test Reason : Blood Pressure : / mmHG Vent. Rate : 085 BPM Atrial Rate : 085 BPM P-R Int : 154 ms QRS Dur : 100 ms QT Int : 358 ms P-R-T Axes : 012 060 037 degrees QTc Int : 426 ms POOR DATA QUALITY, INTERPRETATION MAY BE ADVERSELY AFFECTED NORMAL SINUS RHYTHM POSSIBLE INFERIOR INFARCT (CITED ON OR BEFORE 22-OCT-2018) ABNORMAL ECG WHEN COMPARED WITH ECG OF 22-OCT-2018 03:58, NO SIGNIFICANT CHANGE WAS FOUND PATIENT IN PAIN DURING EKG Confirmed by MD DESHAWN, OLEGARIO ([id number]) on 10/22/2018 1:11:11 PM Referred By: Nayeli MCGILL Confirmed By:OLEGARIO HESS MD
--- NOTE | 2018-10-22 13:12 | EKG ---
Test Reason : Blood Pressure : / mmHG Vent. Rate : 084 BPM Atrial Rate : 084 BPM P-R Int : 158 ms QRS Dur : 102 ms QT Int : 364 ms P-R-T Axes : 022 053 048 degrees QTc Int : 430 ms NORMAL SINUS RHYTHM CANNOT RULE OUT INFERIOR INFARCT , AGE UNDETERMINED ABNORMAL ECG WHEN COMPARED WITH ECG OF 22-OCT-2018 01:13, INCOMPLETE RIGHT BUNDLE BRANCH BLOCK IS NO LONGER PRESENT Confirmed by MD DESHAWN, OLEGARIO ([id number]) on 10/22/2018 1:12:23 PM Referred By: Confirmed By:OLEGARIO HESS MD
--- NOTE | 2018-10-22 13:13 | EKG ---
Test Reason : Blood Pressure : / mmHG Vent. Rate : 105 BPM Atrial Rate : 105 BPM P-R Int : 148 ms QRS Dur : 102 ms QT Int : 332 ms P-R-T Axes : 014 078 038 degrees QTc Int : 438 ms SINUS TACHYCARDIA INCOMPLETE RIGHT BUNDLE BRANCH BLOCK BORDERLINE ECG WHEN COMPARED WITH ECG OF 21-OCT-2018 15:30, NO SIGNIFICANT CHANGE WAS FOUND Confirmed by MD DESHAWN, OLEGARIO ([id number]) on 10/22/2018 1:13:29 PM Referred By: Confirmed By:OLEGARIO HESS MD
--- NOTE | 2018-10-22 13:59 | DS ---
Physical Exam: SUBJECTIVE: Patient seen and examined, still with chest pain but better than before. OBJECTIVE: Vital Signs Period Temp Pulse Resp BP Sys/Bates Pulse Ox Last 24 Hr 98.1 F-98.8 F 77-122 12-33 98-146/51-104 98-100 Intake & Output 10/19/18 10/20/18 10/21/18 10/22/18 23:59 23:59 23:59 23:59 Intake Total 132 Balance 132 Weight 160 lb 162 lb 7.691 oz PHYSICAL EXAM GENERAL: The patient is awake, alert, and fully oriented, in no acute distress. HEAD: Normal with no signs of trauma. EYES: PERRL, extraocular movements intact, sclera anicteric, conjunctiva clear. ENT: Ears normal, nares patent, oropharynx clear without exudates, moist mucous membranes. NECK: soft, supple, no JVD visualized LUNGS: Breath sounds equal, clear to auscultation bilaterally, no wheezes, no crackles, no accessory muscle use. HEART: Regular rate and rhythm, S1, S2 ABDOMEN: Soft, nontender, nondistended, normoactive bowel sounds, no guarding, no rebound EXTREMITIES: 2+ pulses, warm, well-perfused, no edema. PSYCH: Normal mood, normal affect. SKIN: Warm, dry, normal turgor, no rashes or lesions noted. LABS Laboratory Results - last 24 hr 10/21/18 10/21/18 10/21/18 15:45 15:45 15:55 WBC 6.3 RBC 4.62 Hgb 14.4 Hct 41.5 MCV 89.7 MCH 31.2 MCHC 34.7 RDW 12.3 Plt Count 312 D MPV 9.0 D Absolute Neuts (auto) 4.7 Neutrophils % 74.8 Lymphocytes % 16.9 D Monocytes % 7.7 Eosinophils % 0.4 Basophils % 0.2 Nucleated RBC % 0 PT with INR 12.10 INR 1.03 PTT (Actin FS) Sodium 125 L Potassium 4.4 Chloride 92 L Carbon Dioxide 25 Anion Gap 8 BUN 11 Creatinine 0.8 Creat Clearance w eGFR 102.32 POC Glucometer Random Glucose 385 H* Calcium 8.9 Phosphorus Magnesium Total Bilirubin 0.6 AST 24 ALT 96 H Alkaline Phosphatase 132 H Creatine Kinase 43 Troponin I 0.36 H Total Protein 8.9 H Albumin 3.5 Urine Color Urine Appearance Urine pH Ur Specific [place] Urine Protein Urine Glucose (UA) Urine Ketones Urine Blood Urine Nitrite Urine Bilirubin Urine Urobilinogen Ur Leukocyte Esterase Urine WBC (Auto) Urine RBC (Auto) Urine Mucus 10/21/18 10/21/18 10/22/18 22:03 23:30 07:58 WBC RBC Hgb Hct MCV MCH MCHC RDW Plt Count MPV Absolute Neuts (auto) Neutrophils % Lymphocytes % Monocytes % Eosinophils % Basophils % Nucleated RBC % PT with INR INR PTT (Actin FS) Sodium Potassium Chloride Carbon Dioxide Anion Gap BUN Creatinine Creat Clearance w eGFR POC Glucometer 190 Random Glucose Calcium Phosphorus Magnesium Total Bilirubin AST ALT Alkaline Phosphatase Creatine Kinase Troponin I 1.56 H* Total Protein Albumin Urine Color Yellow Urine Appearance Clear Urine pH 6.0 Ur Specific [place] 1.042 H Urine Protein 2+ H Urine Glucose (UA) 1+ H Urine Ketones Negative Urine Blood Negative Urine Nitrite Negative Urine Bilirubin Negative Urine Urobilinogen Negative Ur Leukocyte Esterase Negative Urine WBC (Auto) 1 Urine RBC (Auto) <1 Urine Mucus Rare 10/22/18 10/22/18 10/22/18 08:08 08:08 08:08 WBC 4.5 RBC 3.77 L Hgb 11.9 Hct 33.3 L D MCV 88.4 MCH 31.5 MCHC 35.7 RDW 12.0 Plt Count 207 D MPV 9.4 Absolute Neuts (auto) 3.2 Neutrophils % 69.4 Lymphocytes % 20.9 D Monocytes % 9.1 Eosinophils % 0.3 Basophils % 0.3 Nucleated RBC % 0 PT with INR INR PTT (Actin FS) 40.7 H Sodium 128 L Potassium 4.5 Chloride 96 L Carbon Dioxide 27 Anion Gap 5 L BUN 14 Creatinine 0.7 Creat Clearance w eGFR 119.37 POC Glucometer Random Glucose 193 H Calcium 7.6 L Phosphorus 3.5 Magnesium 1.8 Total Bilirubin 0.4 AST 18 ALT 60 Alkaline Phosphatase 84 Creatine Kinase 30 Troponin I 1.01 H* Total Protein 7.0 Albumin 2.6 L Urine Color Urine Appearance Urine pH Ur Specific [place] Urine Protein Urine Glucose (UA) Urine Ketones Urine Blood Urine Nitrite Urine Bilirubin Urine Urobilinogen Ur Leukocyte Esterase Urine WBC (Auto) Urine RBC (Auto) Urine Mucus HOSPITAL COURSE: Date of Admission:10/22/18 Date of Discharge: 10/22/18 Minutes to complete discharge: 45 Discharge Summary Reason For Visit: CHEST PAIN Hospital Course: 48 yom with PMHx of NIDDM, HLD, HTN, CAD, PE (Dx at [facility] on 10/14/18, on Xarelto) , [place] and recent cardiac stenting at [facility] ,admitted with chest pain and elevated troponin . He had CTA chest that was negative for pulmonary embolism. Cardiology was consulted. He was aggressively started on NSTEMI treatment and accepted to [facility] CCU and admitted to [facility] ICU pending bed availability. He will be transferred to [facility] for cardiac cath and further intervention. Condition: Critical - Instructions Disposition: TRANSFER ACUTE CARE/OTHER HOSP - Home Medications Comprehensive Discharge Medication List: Ambulatory Orders Atorvastatin Ca [Lipitor] 80 mg PO HS 10/21/18 Clopidogrel Bisulfate [Plavix] 75 mg PO DAILY 10/21/18 Lisinopril [Prinivil] 5 mg PO DAILY 10/21/18 Metformin HCl [Glucophage] 1,000 mg PO BID 10/21/18 Metoprolol Succinate [Toprol Xl] 25 mg PO DAILY 10/21/18 Rivaroxaban [Xarelto -] 20 mg PO DAILY 10/21/18 Rivaroxaban [Xarelto] 15 mg PO BID 10/21/18 predniSONE [Deltasone -] 5 mg PO DAILY 10/21/18 Chlorhexidine Gluconate [Hibiclens For Decolonization -] 1 applic TP HS bottle 10/22/18 Heparin - 5,000 unit IVPUSH PRN PRN vial 10/22/18 Heparin - 25,000 unit IV TITR vial 10/22/18 Insulin Sliding Scale [Novolog Vial Sliding Scale -] 0 vial SQ ACHS units 10/22 Insulin Sliding Scale [Novolog Vial Sliding Scale -] 1 vial SQ ACHS units 10/22 Lisinopril [Prinivil] 5 mg PO DAILY tablet 10/22/18 Mupirocin Ointment [Bactroban Ointment (For Decolonization) -] 1 applic NS BID applic 10/22/18 Pantoprazole Sodium [Protonix IV] 40 mg IVPUSH DAILY vial 10/22/18 This patient is new to me today: Yes Date on this admission: 10/22/18 Emergency Visit: No Critical Care patient: Yes Total Critical Care Time (in minutes): 45 Critical Care Statement: The care of this patient involved high complexity decision making to prevent further life threatening deterioration of the patient 's condition and/or to evaluate & treat vital organ system(s) failure or risk of failure. - Discharge Referral Referred to [facility] No
--- NOTE | 2018-10-22 17:56 | EKG ---
Test Reason : Blood Pressure : / mmHG Vent. Rate : 094 BPM Atrial Rate : 094 BPM P-R Int : 154 ms QRS Dur : 100 ms QT Int : 340 ms P-R-T Axes : 052 052 039 degrees QTc Int : 425 ms NORMAL SINUS RHYTHM INCOMPLETE RIGHT BUNDLE BRANCH BLOCK BORDERLINE ECG WHEN COMPARED WITH ECG OF 08-OCT-2018 11:44, INCOMPLETE RIGHT BUNDLE BRANCH BLOCK IS NOW PRESENT Confirmed by MD DESHAWN, OLEGARIO ([id number]) on 10/22/2018 5:56:24 PM Referred By: Confirmed By:OLEGARIO HESS MD
[2018-10-22] MEDS ORDERED: CHLORHEXIDINE GLUCONATE 4% CLEANSER FOR DECOLONIZATION TP SCH (22:00)
[2018-10-22] MEDS ORDERED: ATORVASTATIN CA 80 MG TABLET (FP) PO SCH (22:00)
== END 2018-10-22 11:55 | disposition short-term general hospital (02) | DRG 190 ==
LOC: JER 15:32 → JERBED 19:38 → OBSVTOIN 10-22 02:17 → JICU 10-22 04:56
PROVIDERS: ADMIT Internal Medicine; ATTEND Hospitalist
DX: I21.4 Non-ST elevation (NSTEMI) myocardial infarction (principal); I10 Essential (primary) hypertension; E78.00 Pure hypercholesterolemia, unspecified; R00.0 Tachycardia, unspecified; I25.10 Atherosclerotic heart disease of native coronary artery without angina pectoris; E11.65 Type 2 diabetes mellitus with hyperglycemia; E87.1 Hypo-osmolality and hyponatremia; E83.42 Hypomagnesemia; E88.09 Other disorders of plasma-protein metabolism, not elsewhere classified; Z87.891 Personal history of nicotine dependence; Z86.711 Personal history of pulmonary embolism; Z95.5 Presence of coronary angioplasty implant and graft
CPT/HCPCS: 36415; 71045-TC-FY; 71275-TC; 80053; 81003; 81015; 82550; 82962; 83735; 84100; 84484; 85025; 85610; 85730; 93005; 93010; 99285-25; G0378; J0131; J1644; J7030

== ENCOUNTER 2021-09-14 09:16 | Inpatient (IN) | payer OTHER ==
[2021-09-14] MEDS ORDERED: ACETAMINOPHEN 500 MG TABLET (FP) PO ONE ×2 (09:49→21:07)
[2021-09-14] MEDS ORDERED: ACETAMINOPHEN 500 MG TABLET (FP) ONE (10:00)
[2021-09-14 10:12] LABS: BASO % 0.2 % (0-2.0); EOS % 0.1 % (0-4.5); HEMATOCRIT 40.9 % (35.4-49); HEMOGLOBIN 14.4 GM/dL (11.7-16.9); LYMPH % 11.5 % (8-40); MCH 31.8 pg (25.7-33.7); MCHC 35.3 g/dl (32.0-35.9); MEAN CELL VOLUME 90.1 fl (80-96); MEAN PLT VOLUME 8.6 fl (7.5-11.1); MONO % 10.2 % (3.8-10.2); PLATELET COUNT 178 10^3/uL (134-434); RBC 4.54 M/mm3 (4.00-5.60); RDW 12.5 % (11.9-15.9); WHITE BLOOD COUNT 8.1 K/mm3 (4.0-10.0)
[2021-09-14 10:33] LABS: BLOOD UREA NITROGEN 13.6 mg/dL (7-18); CALCIUM 8.8 mg/dL (8.5-10.1)
[2021-09-14 10:34] LABS: ALBUMIN 3.6 g/dl (3.4-5.0)
[2021-09-14 10:36] LABS: CREATININE 1.2 mg/dL (0.55-1.3)
[2021-09-14 10:37] LABS: BILIRUBIN,TOTAL 0.6 mg/dL (0.2-1)
[2021-09-14] MEDS ORDERED: CLINDAMYCIN 600MG PREMIX IVPB 600 MG/50 ML BAG IVPB ONE ×2 (12:17→12:34)
[2021-09-14] MEDS ORDERED: CEFTRIAXONE 1 GM in DEXTROSE 5%-WATER - 50 ML IVPB SCH (12:57)
[2021-09-14] MEDS ORDERED: CEFTRIAXONE 1 GM/50 ML BAG ONE (13:54)
[2021-09-14] MEDS: SODIUM CHLORIDE 0.45% 1,000 ML IV SCH ×2 (14:03→21:39)
[2021-09-14 17:47] VITALS: BMI 25.2
[2021-09-14] MEDS: INSULIN (NOVOLOG) ASPART 100 UNITS/ML 10ML VIAL SQ SCH (21:39)
[2021-09-15] MEDS: INSULIN (NOVOLOG) ASPART 100 UNITS/ML 10ML VIAL SQ SCH ×4 (06:09→22:28)
[2021-09-15] MEDS ORDERED: PIPERACILLIN/TAZOBACTAM 3.375 GM VIAL IVPB ONE (09:37)
[2021-09-15] MEDS ORDERED: DEXTROSE 5%-WATER - 50 ML IVPB ONE (09:38)
[2021-09-15] MEDS: ASPIRIN 81 MG CHEWABLE TABLETS PO SCH (09:40)
[2021-09-15] MEDS ORDERED: VANCOMYCIN 1 GM in D5W (PRE-DOCKED) 1,000 MG/250 ML IVPB ONE (10:00)
[2021-09-15] MEDS ORDERED: PIPERACILLIN/TAZOB 3.375 GM 3.375 GM in DEXTROSE 5%-WATER - 50 ML IVPB SCH (10:00)
[2021-09-15] MEDS: SODIUM CHLORIDE 0.45% 1,000 ML IV SCH (13:24)
[2021-09-15] MEDS ORDERED: CEFTRIAXONE 2 GM in DEXTROSE 5%-WATER 2 GM/100 ML BAG IVPB SCH (18:00)
[2021-09-15] MEDS ORDERED: DEXTROSE 5%-WATER 100 ML IVPB ONE (18:13)
[2021-09-15] MEDS: CLINDAMYCIN 600MG PREMIX IVPB 600 MG/50 ML BAG IVPB SCH (18:17)
[2021-09-15] MEDS ORDERED: ACETAMINOPHEN 1000 MG/100 ML BAG IVPB PRN (23:34)
[2021-09-16] MEDS: CLINDAMYCIN 600MG PREMIX IVPB 600 MG/50 ML BAG IVPB SCH ×3 (02:13→17:31)
[2021-09-16] MEDS: INSULIN (NOVOLOG) ASPART 100 UNITS/ML 10ML VIAL SQ SCH ×4 (06:03→21:47)
[2021-09-16] MEDS: ASPIRIN 81 MG CHEWABLE TABLETS PO SCH (09:33)
[2021-09-16] MEDS ORDERED: PIPERACILLIN/TAZOB 3.375 GM 3.375 GM in DEXTROSE 5%-WATER - 50 ML IVPB SCH (10:00)
[2021-09-16] MEDS ORDERED: PROPOFOL 20 ML ONE ×2 (10:04)
[2021-09-16] MEDS ORDERED: MIDAZOLAM HCL 2 MG/2 ML SINGLE DOSE VIAL ONE (10:05)
[2021-09-16 11:16] LABS: BASO % 0.2 % (0-2.0); EOS % 0.3 % (0-4.5); HEMATOCRIT 37.5 % (35.4-49); HEMOGLOBIN 13.1 GM/dL (11.7-16.9); LYMPH % 11.6 % (8-40); MCH 31.4 pg (25.7-33.7); MCHC 34.8 g/dl (32.0-35.9); MEAN CELL VOLUME 90.2 fl (80-96); MEAN PLT VOLUME 9.4 fl (7.5-11.1); MONO % 11.4 % (3.8-10.2); NEUT % 76.5 % (42.8-82.8); PLATELET COUNT 181 10^3/uL (134-434); RBC 4.16 M/mm3 (4.00-5.60); RDW 12.4 % (11.9-15.9); WHITE BLOOD COUNT 9.6 K/mm3 (4.0-10.0)
[2021-09-16] MEDS ORDERED: ONDANSETRON 4 MG/2 ML VIAL IVPUSH PRN ×2 (11:18→11:47)
[2021-09-16] MEDS ORDERED: LACTATED RINGERS SOLUTION 1,000 ML IV SCH (11:30)
[2021-09-16 11:51] LABS: CALCIUM 8.2 mg/dL (8.5-10.1)
[2021-09-16 11:52] LABS: BLOOD UREA NITROGEN 10.7 mg/dL (7-18)
[2021-09-16] MEDS: LACTATED RINGERS SOLUTION 1,000 ML IV SCH ×2 (12:23→21:50)
[2021-09-16] MEDS: ACETAMINOPHEN 500 MG TABLET (FP) PO SCH ×3 (12:25→23:22)
[2021-09-16] MEDS ORDERED: DEXTROSE 5%-WATER 100 ML IVPB ONE (17:26)
[2021-09-16] MEDS: CEFTRIAXONE 2 GM in DEXTROSE 5%-WATER 2 GM/100 ML BAG IVPB SCH (18:21)
[2021-09-17] MEDS: CLINDAMYCIN 600MG PREMIX IVPB 600 MG/50 ML BAG IVPB SCH ×3 (01:26→17:51)
[2021-09-17] MEDS: ACETAMINOPHEN 500 MG TABLET (FP) PO SCH (06:09)
[2021-09-17] MEDS: LACTATED RINGERS SOLUTION 1,000 ML IV SCH ×2 (06:10→15:29)
[2021-09-17] MEDS: INSULIN (NOVOLOG) ASPART 100 UNITS/ML 10ML VIAL SQ SCH ×4 (06:14→22:33)
[2021-09-17] MEDS ORDERED: DOCUSATE SODIUM 100 MG CAPSULE (FP) PO PRN (09:28)
[2021-09-17 09:32] LABS: BASO % 0.3 % (0-2.0); EOS % 2.3 % (0-4.5); HEMATOCRIT 37.3 % (35.4-49); HEMOGLOBIN 12.6 GM/dL (11.7-16.9); LYMPH % 13.6 % (8-40); MCH 30.5 pg (25.7-33.7); MCHC 33.8 g/dl (32.0-35.9); MEAN CELL VOLUME 90.3 fl (80-96); MEAN PLT VOLUME 9.6 fl (7.5-11.1); MONO % 10.9 % (3.8-10.2); NEUT % 72.9 % (42.8-82.8); PLATELET COUNT 190 10^3/uL (134-434); RBC 4.13 M/mm3 (4.00-5.60); RDW 12.2 % (11.9-15.9)
[2021-09-17 09:52] LABS: CALCIUM 8.3 mg/dL (8.5-10.1)
[2021-09-17 09:53] LABS: BLOOD UREA NITROGEN 8.6 mg/dL (7-18)
[2021-09-17 09:56] LABS: CREATININE 0.9 mg/dL (0.55-1.3)
[2021-09-17 09:57] LABS: BILIRUBIN,TOTAL 0.4 mg/dL (0.2-1)
[2021-09-17 09:59] LABS: ALBUMIN 2.8 g/dl (3.4-5.0)
[2021-09-17] MEDS ORDERED: DEXTROSE 5%-WATER 100 ML IVPB ONE (11:35)
[2021-09-17] MEDS: DOCUSATE SODIUM 100 MG CAPSULE (FP) PO SCH ×2 (11:40→21:38)
[2021-09-17] MEDS: ASPIRIN 81 MG CHEWABLE TABLETS PO SCH (11:41)
[2021-09-17] MEDS: POLYETHYLENE GLYCOL (HEALTHYLAX) 3350 17 GM PACKET PO SCH ×2 (11:41→21:38)
[2021-09-17] MEDS: HEPARIN NA (PORCINE) 5,000 UNITS/ML 1ML VIAL SQ SCH ×2 (15:29→21:39)
[2021-09-17] MEDS: CEFTRIAXONE 2 GM in DEXTROSE 5%-WATER 2 GM/100 ML BAG IVPB SCH (17:51)
[2021-09-17] MEDS ORDERED: SENNOSIDES 8.6MG TABLET (FP) PO SCH (22:00)
[2021-09-18] MEDS: CLINDAMYCIN 600MG PREMIX IVPB 600 MG/50 ML BAG IVPB SCH ×2 (02:14→09:27)
[2021-09-18] MEDS: HEPARIN NA (PORCINE) 5,000 UNITS/ML 1ML VIAL SQ SCH ×2 (05:22→15:47)
[2021-09-18] MEDS: INSULIN (NOVOLOG) ASPART 100 UNITS/ML 10ML VIAL SQ SCH ×2 (06:30→11:51)
[2021-09-18 09:08] LABS: BASO % 0.8 % (0-2.0); EOS % 4.2 % (0-4.5); HEMATOCRIT 36.2 % (35.4-49); HEMOGLOBIN 12.9 GM/dL (11.7-16.9); LYMPH % 22.1 % (8-40); MCHC 35.7 g/dl (32.0-35.9); MEAN CELL VOLUME 89.7 fl (80-96); MONO % 13.7 % (3.8-10.2); NEUT % 59.2 % (42.8-82.8); PLATELET COUNT 201 10^3/uL (134-434); RBC 4.03 M/mm3 (4.00-5.60); RDW 12.2 % (11.9-15.9); WHITE BLOOD COUNT 4.6 K/mm3 (4.0-10.0)
[2021-09-18] MEDS: POLYETHYLENE GLYCOL (HEALTHYLAX) 3350 17 GM PACKET PO SCH (09:26)
[2021-09-18] MEDS: ASPIRIN 81 MG CHEWABLE TABLETS PO SCH (09:27)
[2021-09-18] MEDS: DOCUSATE SODIUM 100 MG CAPSULE (FP) PO SCH (09:27)
[2021-09-18 09:56] LABS: BLOOD UREA NITROGEN 8.5 mg/dL (7-18); CALCIUM 8.1 mg/dL (8.5-10.1)
[2021-09-18 10:00] LABS: CREATININE 0.9 mg/dL (0.55-1.3)
[2021-09-18] MEDS: LACTATED RINGERS SOLUTION 1,000 ML IV SCH (11:52)
[2021-09-18 14:48] VITALS: BP 108/53; PULSE 60; TEMP 98.3
== END 2021-09-18 17:14 | disposition home or self-care (01) | DRG 364 ==
LOC: JER 09:16 → JERBED 12:49 → J8W 17:08
PROVIDERS: ADMIT Internal Medicine
PROC: 0J9B0ZZ Drainage of Perineum Subcutaneous Tissue and Fascia, Open Approach (ICD-10-PCS; principal; 2021-09-16 10:00)
DX: L02.215 Cutaneous abscess of perineum (principal); I25.10 Atherosclerotic heart disease of native coronary artery without angina pectoris; E11.9 Type 2 diabetes mellitus without complications; I10 Essential (primary) hypertension; Z79.4 Long term (current) use of insulin; E78.5 Hyperlipidemia, unspecified
CPT/HCPCS: 36415; 74177-TC; 80048; 80053; 82962; 83036; 85025; 87040; 94760; 97116-GP; 97161-GP; 99285-25; C9803; J1644; U0003; U0005